=== PATIENT | male | born 1945 | race Caucasian/White ===

== ENCOUNTER 2020-08-16 14:31 | Observation (INO) | payer OTHER ==
--- OUTSIDE RECORDS SUMMARY | 2020-08-16 14:38 | XMS REPORT | Continuity of Care Document ---
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 06:00: Leonel perdue d lower Contusion 00 leg, of initial unspecifie encounter d lower leg, initial encounter 04/02/2018 04/05/2018 [facility] Encounter Problem 2017-0 2018-03-23 2018-03-23 Memoria for 09-16 12:50:43 12:50:43 l screening 03:45: Julio Cesar for Encounter 57 malignant for neoplasm screening of colon for malignant neoplasm of colon 8 03/23/2018 [place] Shortness Problem 2017-05-28 2017-05-28 Memoria of breath 02-25 21:08:44 21:08:44 l 05:27: Julio Cesar Shortness 27 of breath 02/25/2017 05/28/2017 RANDAL Palaciosann Discharge Problem 2015-10-16 2015-10-16 Memoria Diagnosis: 10-12 01:21:41 01:21:41 l Acute head 05:00: Leonel perdue injury Discharge 00 Diagnosis: Acute head injury 10/13/2015 10/16/2015 [facility] Discharge Problem 2015-10-16 2015-10-16 Memoria Diagnosis: 10-12 01:21:41 01:21:41 l Ear lobe 05:00: Julio Cesar laceration Discharge 00 Diagnosis: Ear lobe laceration 10/13/2015 10/16/2015 [facility] Discharge Problem 2015-05-18 2015-05-18 Memoria Diagnosis: 4-05 04:15:33 04:15:33 l Laceration 05:00: Leonel perdue of left Discharge 00 index Diagnosis: finger Laceration of left index finger 05/15/2015 05/18/2015 [facility] Allergies, Adverse Reactions, Alerts Allergy Allergy Status Severity Reaction(s) Onset Inactive Treating Comm ents Source Name Type Date Date Clinician mexileti mexileti Active Info Not Kamari serena ne ne Available 3-14 l 00:00: [place] 00 Lisinopr Propensi Active Other (See Leg pain Armstrong il ty to Comments) 6-13 [facility] adverse 00:00: st reaction 00 s to drug Mexileti Propensi Active Other (See Chest [place] ne ty to Comments) 6-13 pain [facility] adverse 00:00: st reaction 00 s to drug mexileti mexileti Active Memori a ne<sup>1 ne<sup>1 7-03 l </sup> </sup> 05:00: [place] 00 lisinopr lisinopr Active Memori a il il l [place] Family History Family Member Diagnosis Comments Start Date Stop Date Source Mother Family history of Univers ity of diabetes mellitus [place] [facility] Mother Family history of Univers ity of cerebrovascular [place] Ph[facility] s[facility] accident (CVA) Father Family history of lung Un iversity of cancer [place] Physicia ns Brother Family history of Univers ity of cardiac disorder [place] [facility] Brother Family history of Univers ity of hypertension [place] [facility] ians Natural brother Heart attack [place] [facility] Natural brother Heart disease [place] [facility] Natural father Heart attack [place] [facility] Natural father Heart disease [place] [facility] Social History Social Habit Start Date Stop Date Quantity Comments Source Social History 2018-11-09 2018-11-09 [facility] jackson 15:58:28 15:58:28 Tobacco use and 2018-06-07 2018-06-07 Former user [place] [facility] exposure 00:00:00 00:00:00 Alcohol intake 2018-06-07 2018-06-07 Current drinker [place] [facility] 00:00:00 00:00:00 of alcohol (finding) Tobacco Comment 2016-07-22 2016-07-22 Quit 12 years [place] [facility] 00:00:00 00:00:00 ago Sex Ass[birth year] At [birth year] [facility] ethodist 00:00:00 00:00:00 Smoking Status Start Date Stop Date Source Never smoked tobacco [facility] (finding) Physicians Former smoker 2018-06-07 00:00:00 2018-06-07 00:00:00 [place] [facility] Medications Ordered Filled Start Stop Current Ordering Indication Dosage Frequency Signature Comments Components Source Medication Medication Date Date Medication? Clinician (SIG) Name Name Tamsulosin Yes 0.4 mg = 1 M emoria hydrochlori 4-28 cap, PO, l de 0.4 MG 15:10: Daily, # Herm kai Oral 00 90 cap, 1 Capsule Refill(s), [Flomax] Pharmacy: [facility], 167.64, cm, 06/06/20 9:43:00 CDT, Height, 108.636, kg, 06/06/20 9:43:00 CDT, Weight pantoprazol Yes KIMBER 1 tab(s) Memoria e 4-22 SDRINGOLA- l 02:46: MARANGA Julio Cesar 20 furosemide Yes KIMBER 1 tab(s) Memoria 4-22 SDRINGOLA- l 02:46: MARANGA Julio Cesar 20 simvastatin Yes KIMBER 1 tab(s) Memoria 4-22 SDRINGOLA- l 02:46: MARANGA Julio Cesar 20 Ranexa Yes KIMBER 1 tab(s) Kamari serena 4-22 SDRINGOLA- l 02:46: AMANANGA [place] 20 aspirin Yes KIMBER 1 tab(s) Mem oria 4-22 SDRINGOLA- l 02:46: ALFONZO Palaciosann 20 Jackson-3 Yes KIMBER 1 cap(s) Mem oria 4-22 SDRINGOLA- l 02:46: ALFONZO Palaciosann 20 Co Q-10 Yes KIMBER 1 cap(s) Mem oria 4-22 SDRINGOLA- l 02:46: ALFONZO Palaciosann 20 ezetimibe Yes KIMBER 1 tab(s) M emoria 4-22 SDRINGOLA- l 02:46: ALFONZO Palaciosann 20 Metoprolol Yes KIMBER 1 tab(s) Memoria Tartrate 4-22 SDRINGOLA- l 02:46: ALFONZO Palaciosann 20 dutasteride Yes 1 cap, PO, Memoria -tamsulosin 4-15 Daily, # l 0.5 mg-0.4 13:53: 90 cap, 4 He rmann mg oral 00 Refill(s), capsule Pharmacy: [facility], 167.64, cm, 05/24/20 8:25:00 CDT, Height, 109.091, kg, 05/24/20 8:25:00 CDT, Weight Triamcinolo Yes 1 appl, Mem oria ne 4-15 TOP, TID, l Acetonide 13:52: X 14 day, Her coon 0.001 MG/MG 00 # 60 gm, 3 Topical Refill(s), Ointment Pharmacy: [facility], 167.64, cm, 05/24/20 8:25:00 CDT, Height, 109.091, kg, 05/24/20 8:25:00 CDT, Weight simvastatin 2019-1 Yes 0 Memori a 40 mg oral 0-15 Refill(s) l tablet 12:13: [place] 00 losartan 25 2019-1 Yes 0 Memori a mg oral 0-15 Refill(s) l tablet 12:12: [place] 00 Furosemide 2020-0 Yes See Memoria 40 MG Oral 6-10 Instructio l Tablet 15:55: ns, 1.5 Julio Cesar 00 tab PO in the AM and 1 tab in the PM, # 60 tab, 0 Refill(s), Pharmacy: [facility], 167.64, cm, 07/19/19 4:24:00 CDT, Height, 105.909, kg, 07/19/19 4:24:00 CDT, Weight metoprolol 2019-0 Yes 12.5 mg, Mem oria succinate 6-10 PO, Daily, l 25 mg oral 15:55: # 30 tab, He rmann capsule, 00 0 extended Refill(s), release Pharmacy: [facility], 167.64, cm, 07/19/19 4:24:00 CDT, Height, 105.909, kg, 07/19/19 4:24:00 CDT, Weight spironolact 2019-0 Yes 25 mg = 1 M emoria one 25 mg 6-10 tab, PO, l oral tablet 15:55: Daily, # He rmann 00 30 tab, 0 Refill(s), Pharmacy: [facility], 167.64, cm, 07/19/19 4:24:00 CDT, Height, 105.909, kg, 07/19/19 4:24:00 CDT, Weight Aspirin 81 2020-0 No 81 mg, 1 Mem oria MG Enteric 6-10 tab, l Coated 14:00: Route: PO, Erin nn Tablet 00 Drug form: ECTAB, Daily, Dosing Weight 105.909, kg, Start date: 07/20/19 9:00:00 CDT, Duration: 30 day, Stop date: 08/18/19 9:00:00 CDT Vitamin D3 No Notes: Memor ia 2000 intl 6-10 Same as : l units oral 14:00: Vitamin D3 H ermann tablet 00 Zetia No Notes: Memoria 6-10 (Same as: l 14:00: Zetia) Julio Cesar 00 pantoprazol No Notes: Kamari serena e 6-10 Tablet l 14:00: should not Julio Cesar 00 be chewed or crushed. (Same as: Protonix) Potassium No Notes: Memori a Chloride 6-10 (Same as: l 14:00: K-Dur 20) Julio Cesar 00 "Do Not Crush" Give with food and full glass of water For patients unable to swallow tablet, dissolve in one half glass of water. Allow about 2 minutes for the tablets to disintegra te. Stir before giving to prepare slurry and administer . Please exclude Patient s with feeding tube less than 14 [place] (Dobhoff, J-tube etc) and pediatric and patients. metoprolol No Notes: Memor ia extended 6-10 (Same as: l release 14:00: Toprol XL) Herm kai 00 Do Not Crush 12.5 mg = 1/2 x 25 mg TAB Potassium No Notes: Memori a Chloride 6-10 (Same as: l 13:49: Potassium Julio Cesar 00 Chloride) Trazodone No Notes: Memori a 6-10 (Same As: l 02:02: Desyrel) Julio Cesar 00 12 HR No Notes: Memoria ranolazine - Same as l 500 MG 22:00: Ranexa "Do Erin nn Extended 00 Not Crush" Release Tablet [Ranexa] potassium No Notes: Memori a chloride 20 6-09 (Same as: l mEq oral 15:48: K-Dur 20) Herm kai tablet, 00 "Do Not extended Crush" release Give with (KCL) food and full glass of water For patients unable to swallow tablet, dissolve in one half glass of water. Allow about 2 minutes for the tablets to disintegra te. Stir before giving to prepare slurry and administer . Please exclude Patient s with feeding tube less than 14 [place] (Dobhoff, J-tube etc) and pediatric and patients. Spironolact 2019-0 No Notes: Kamari serena one 6-09 (Same As: l 14:00: Aldactone) Hazardous Drug Group 2:Non-anti neoplastic Hazardous Drug -- Refer to safe handling procedure PPE [id number] atorvastati 0 No Notes: Kamari serena n 6-09 (Same As: l 02:00: Lipitor) furosemide No Notes: Memor ia 6-08 (Same as: l 21:00: Lasix) MEDICATION WASTE Product Size: 40 mg Product Wasted: ___ mg Aspirin 81 No Notes: Memor ia MG Chewable 6-08 Take with l Tablet 14:00: food. clopidogrel No Notes: Kamari serena 6-08 (Same As: l 14:00: Plavix) Spironolact No Notes: Kamari serena one 6-08 (Same As: l 14:00: Aldactone) Hazardous Drug Group 2:Non-anti neoplastic Hazardous Drug -- Refer to safe handling procedure PPE [id number] isosorbide 0 No Notes: Memor ia mononitrate 6-08 (Same l extended 14:00: as:Imdur) "Do Not Crush" Take on empty stomach/ full glass of water. Do not crush Acetaminoph 2019-0 No Notes: Kamari serena en 325 MG / 6-08 Same as l Hydrocodone 02:07: [place]ing[place] Erin nn Bitartrate 00 325-7.5mg 7.5 MG Oral Do not Tablet exceed 4gm/day of acetaminop hen. Saline 0 No Notes: Memoria Flush 0.9% 6-08 Same as: l 02:00: BD Posiflush Sterile Acetaminoph 2019-0 Yes 1 tab, PO, Memoria en 325 MG / 6-08 Q4H, PRN l Hydrocodone 01:10: for pain, H ermann Bitartrate 00 # 42 tab, 7.5 MG Oral 0 Tablet Refill(s) Enoxaparin 0 No Notes: Memor ia 6-08 (Same as: l 00:00: Lovenox) Julio Cesar 00 Ondansetron 2020-0 No Notes: Kamari serena 6-07 (Same as: l 23:08: Zofran) [place] 00 MEDICATION WASTE Product Size: 4 mg Product Wasted: ___ mg Saline 2020-0 No Notes: Memoria Flush 0.9% 6- Same as: l 23:08: BD [place] 00 Posiflush Sterile Furosemide 2019-0 No Notes: Memor ia 6- (Same as: l 23:05: Lasix) MEDICATION WASTE Product Size: 40 mg Product Wasted: ___ mg Lasix 2020-0 No 40 mg, Memoria 07-16 Route: IV, l 22:08: ONCE, Dosing Weight 105.455, kg, Start date: 07/17/19 17:08:00 CDT, Stop date: 07/17/19 17:08:00 CDT furosemide 2019-0 No Notes: Memor ia 6- (Same as: l 05:00: Lasix) MEDICATION WASTE Product Size: 40 mg Product Wasted: ___ mg Hydralazine 2019-0 No Notes: Kamari serena 6-01 (Same as: l 17:27: Apresoline [place] ) Push over 5 minutes Labetalol 2019-0 No Notes: Memori a 6-01 (Same as: l 17:27: Normodyne, Julio Cesar Trandate) Push over 2 minutes Give bolus over 2-3 minutes. Oxycodone 2019-0 No Notes: Memori a Hydrochlori 6-01 (Same as: l de 5 MG 17:27: Roxicodone Herm kai Oral Tablet ) Fentanyl 2019-0 No Notes: Memoria 6- (Same as: l 17:27: Sublimaze) Preservat denise free. Hydromorpho 2019-0 No Notes: Kamari serena ne 6- Same as: l 17:27: Dilaudid Julio Cesar 00 Flumazenil 2019-0 No Notes: Memor ia 6- (Same as: l 17:27: Romazicon) Naloxone 2020-0 No Notes: Memoria 6-01 Same as l 17:27: Narcan Albuterol 2019-0 No Notes: SEE Me moria 0.83 MG/ML 07-10 RT l Inhalant 17:27: DOCUMENTAT Her coon Solution 00 ION (Same as: Proventil) Diphenhydra 2019-0 No Notes: Kamari serena mine 07-10 (Same as: l 17:27: Benadryl) Ondansetron No Notes: Kamari serena 07-10 (Same as: l 17:27: Zofran) MEDICATION WASTE Product Size: 4 mg Product Wasted: ___ mg Dexamethaso 2019-0 No Notes: Kamari serena ne 07-10 Concentrat l 17:27: ion: 4mg/ml ondansetron No Route: IV, Memoria (ANES) 07-10 Drug form: l 16:40: INJ, ONCE, Stop date: 07/11/19 11:40:00 CDT ketOROLAC 2019-0 No IV, ONCE Kamari serena (ANES) 07-10 l 16:40: glycopyrrol 2019-0 No Route: IV, Memoria ate (ANES) 07-10 Drug form: l 16:40: INJ, ONCE, Stop date: 07/11/19 11:40:00 CDT neostigmine No Route: IV, Memoria (ANES) 07-10 Drug form: l 16:40: INJ, ONCE, Stop date: 07/11/19 11:40:00 CDT rocuronium 2019- No Route: IV, M emoria (ANES) 07-10 Drug form: l 16:07: INJ, ONCE, Stop date: 07/11/19 11:07:00 CDT ceFAZolin 2019-0 No Route: IV, Me moria (ANES) 07-10 Drug form: l 16:07: INJ, ONCE, Stop date: 07/11/19 11:07:00 CDT fentaNYL 2019-0 No Route: IV, Mem oria (ANES) 07-10 Drug form: l 16:06: INJ, ONCE, Stop date: 07/11/19 11:06:00 CDT propofol 2020-0 No Route: IV, Mem oria (ANES) 07-10 Drug form: l 16:06: INJ, ONCE, [place] Stop date: 07/11/19 11:06:00 CDT dexamethaso 2019-0 No Route: IV, Memoria ne (ANES) 07-10 Drug form: l 16:06: INJ, ONCE, Julio Cesar Stop date: 07/11/19 11:06:00 CDT midazolam 2019-0 No Route: IV, Me moria (ANES) 07-10 Drug form: l 16:01: SOLN, [place] 00 ONCE, Stop date: 07/11/19 11:01:00 CDT Lactated 2019-0 No Route: IV, Mem oria Ringers 07-10 Total l Injection 14:45: Volume: Erin nn IV (ANES) 00 1,000, 1000 mL Start date: 07/11/19 9:45:00 CDT, Stop date: 07/11/19 10:45:00 CDT Calcium 2019- No 1,000 mL, Memor ia Chloride 07-10 Rate: 75 l 0.0014 12:47: ml/hr, MEQ/ML / 00 Infuse Potassium over: 13.3 Chloride hr, Route: 0.004 IV, Dosing MEQ/ML / Weight Sodium 105.909 Chloride kg, Total 0.103 Volume: MEQ/ML / 1,000, Sodium Start Lactate date: 0.028 07/11/19 MEQ/ML 7:47:00 Injectable CDT, Solution Duration: 30 day, Stop date: 08/10/19 7:46:00 CDT, 2.25, m2, 0 HYDROcodone HYDROcodone Yes SHARRI 1 Q4H TAKE 1 Univers -Acetaminop -Acetaminop 07-10 QUESADA-BAR TABLET ity of hen 7.5-325 hen 7.5-325 00:00: RE M.D. EVERY 4 [place] MG Oral MG Oral 00 HOURS PRN Phys ici Tablet Tablet ans Vitamin D3 Yes 2,000 Memori a 2000 intl 5-14 IntlUnit = l units oral 19:42: 1 cap, PO, H ermann capsule 00 Daily, # 100 cap, 3 Refill(s), Pharmacy: [facility] losartan 25 Yes 25 mg = 1 M emoria mg oral 1-30 tab, PO, l tablet 17:25: Daily, 0 Julio Cesar 00 Refill(s) Sodium 2018-02 No 1,000 mL, Memori a Chloride 0-10 Rate: 75 l 0.9% IV 12:33: ml/hr, Julio Cesar 1000 mL 00 Infuse over: 13.3 hr, Route: IV, Dosing Weight 105.455 kg, Total Volume: 1,000, Start date: 11/18/18 7:33:00 CDT, Duration: 30 day, Stop date: 12/18/18 7:32:00 [employer]LECT[employer]ER, 2.25, m2 12 HR 2018-02 Yes 500 mg = 1 Memori a ranolazine 0-09 tab, PO, l 500 MG 15:57: BID, # 60 Leonel n Extended 00 tab, 0 Release Refill(s) Tablet [Ranexa] Jackson-3 2018-02 Yes 0 Memoria oral 0-01 Refill(s) l capsule 15:54: Julio Cesar 00 potassium 2018-0 Yes 20meq QD Take 20 [place] chloride 4-12 mEq by Methodi (KLOR-CON) 15:15: mouth st 20 mEq 37 daily. packet coenzyme 2019-0 Yes 200mg QD Take 200 [place] Q10 200 mg 4-12 mg by [facility] capsule 15:15: mouth st 37 daily. ranolazine 2019-0 Yes 500mg Q.5D Take 500 [place] (RANEXA) 4-12 mg by [facility] 500 MG 12 15:15: mouth 2 st hr ER 37 (two) tablet times a day. clopidogrel 2019-0 Yes 75mg QD Take 75 mg [place] (PLAVIX) 75 4-12 by mouth Meth jasvir mg tablet 15:15: daily. st 37 aspirin 2019-0 Yes 81mg Q.5D Take 81 mg [place] (ECOTRIN) 4-12 by mouth 2 Meth jasvir 81 MG 15:15: (two) st enteric 37 times a coated day. tablet simvastatin 2019-0 Yes 40mg QD Take 40 mg [place] (ZOCOR) 40 4-12 by mouth Metho di MG tablet 15:15: nightly. st 37 isosorbide 2019-0 Yes 30mg Q.5D Take 30 mg [place] mononitrate 4-12 by mouth 2 Me thodi (IMDUR) 30 15:15: (two) st MG 24 hr 37 times a tablet day. metoprolol Yes 25mg QD Take 25 mg [place] tartrate 4-12 by mouth Methodi (LOPRESSOR) 15:15: daily. st 25 mg 37 tablet pantoprazol 2018-0 Yes 40mg QD Take 40 mg [place] e 4-12 by mouth Methodi (PROTONIX) 15:15: daily. st 40 MG EC 37 tablet OM Yes 1{capsu Q.5D Take 1 [place] 3/E/LINOL/A 4-12 le} capsule by Ms thjasvir LA/OLEIC/GL 15:15: mouth 2 st A/LIP 37 (two) (OMEGA times a 3-6-9 ORAL) day. furosemide Yes 60mg QD Take 60 mg [place] (LASIX) 40 4-12 by mouth Metho di mg tablet 15:15: daily. st 37 ezetimibe Yes 10mg QD Take 10 mg [place] (ZETIA) 10 4-12 by mouth Metho di mg tablet 15:15: daily. st 37 clopidogrel 2018-0 Yes KIMBER 1 tab(s) Memoria 3-12 SDRINGOLA- l 00:00: MARANGA [place] 00 isosorbide 2018-0 Yes KIMBER 1 tab(s) Memoria mononitrate 3-12 SDRINGOLA- l 00:00: MARANGA Julio Cesar 00 potassium 2019-0 Yes KIMBER 1 tab(s) M emoria chloride 3-12 SDRINGOLA- l 00:00: MARANGA Julio Cesar 00 Sulfamethox 2019-0 Yes 1 tab, PO, Memoria azole 800 3-07 BID, X 10 l MG / 15:29: day, # 20 [place] Trimethopri 00 tab, 0 m 160 MG Refill(s), Oral Tablet Pharmacy: [Bactri] [place] [id number] ezetimibe 2018-0 Yes 10 mg = 1 Mem oria 10 MG Oral 3-07 tab, PO, l Tablet 15:08: Daily, 0 Julio Cesar [Zetia] 00 Refill(s) clopidogrel 2017-0 Yes 75 mg = 1 M emoria 75 mg oral 8-15 tab, PO, l tablet 21:59: Daily, # Julio Cesar 00 30 tab, 1 Refill(s), Pharmacy: [place] [id number] Aspirin 81 Yes 81 mg = 1 Me moria MG Enteric 8-15 tab, PO, l Coated 21:59: Daily, # [place] Tablet 00 30 tab, 1 Refill(s), Pharmacy: [place] [id number] Aspirin 81 No Notes: Do Me moria MG Enteric 8-15 not crush l Coated 14:00: or chew. [place] Tablet 00 (Same As: Ecotrin) isosorbide No Notes: Memor ia mononitrate 8-15 (Same l extended 14:00: as:Imdur) Herm kai release 00 "Do Not Crush" Take on empty stomach/ full glass of water. Do not crush 12 HR No Notes: Memoria ranolazine 8-15 Same as l 500 MG 14:00: Ranexa "Do Erin nn Extended 00 Not Crush" Release Tablet [Ranexa] pantoprazol No Notes: Kamari serena e 8-15 Tablet l 12:30: should not Julio Cesar 00 be chewed or crushed. (Same as: Protonix) Lovenox No Notes: Memoria 8-15 (Same as: l 02:00: Lovenox) Julio Cesar 00 Simvastatin No Notes: Kamari serena 8-15 (Same as: l 02:00: Zocor) Julio Cesar 00 Acetaminoph No Notes: Do M emoria en 325 MG / 8-14 not exceed l Hydrocodone 22:20: 4gm/day of Julio Cesar Bitartrate 00 acetaminop 10 MG Oral hen. Tablet (Same as: [Abingdon Abingdon 10/325] 325/10) Lasix No Notes: Memoria 8-14 (Same as: l 21:00: Lasix) [place] 00 MEDICATION WASTE Product Size: 40 mg Product Wasted: ___ mg Aspirin 325 No Notes: (Do Memoria MG Enteric 8-14 Not Crush) l Coated 20:36: Do not [place] Tablet 00 crush or chew. clopidogrel No Notes: Kamari serena 8-14 (Same As: l 20:36: Plavix) [place] 00 Acetaminoph No Notes: Do M emoria en -14 not exceed l 19:53: 4 gm/day. (Same as: Tylenol) Acetaminoph No Notes: Kamari serena en 325 MG / 09-22 (Same as: l Hydrocodone 19:53: [place] Erin nn Bitartrate 00 325/5) Do 5 MG Oral not exceed Tablet 4gm/day of acetaminop hen. Morphine No 2 mg, 1 Memori a 8-14 mL, Route: l 19:53: IVP, Drug form: SOLN, Q4H, Dosing Weight 101.818, kg, PRN Pain Score 7-10, Start date: 09/22/17 14:53:00 CDT, Duration: 30 day, Stop date: 10/22/17 14:52:00 CDT Ondansetron No Notes: Kamari serena 09-22 (Same as: l 19:53: Zofran) MEDICATION WASTE Product Size: 4 mg Product Wasted: ___ mg NS (Bolus) No 500 mL, Kamari serena IV 09-22 500 ml/hr, l 18:43: Infuse Over: 1 hr, Route: IV, 500, Drug form: INJ, ONCE, Priority: STAT, Dosing Weight 101.818 kg, Start date: 09/22/17 13:43:00 CDT, Stop date: 09/22/17 13:43:00 CDT Saline No Notes: Memoria Flush 0.9% 09-22 (Same as: l 15:30: BD Posiflush) ondansetron Yes 4 mg = 2 Me moria 2 mg/mL 8-08 mL, IV, l injectable 21:17: Q4H, PRN Her coon solution 00 Nausea, 0 Refill(s) Enoxaparin Yes 40 mg = Kamari serena 08 0.4 mL, l 21:17: SUB-Q, [id number], 0 Refill(s) Acetaminoph Yes 2 tab, PO, Memoria en 325 MG / 09-16 Q6H, PRN l Hydrocodone 21:17: Pain Score [place] Bitartrate 00 6-10, 0 10 MG Oral Refill(s) Tablet [[place]ing[place] 10/325] pantoprazol No Notes: Kamari serena e 8-08 Tablet l 14:00: should not be chewed or crushed. (Same as: Protonix) Lopressor No Notes: Memori a 8-08 (Same as: l 14:00: Lopressor) Isosorbide No Notes: Memor ia 09-16 (Same l 14:00: as:Imdur) "Do Not Crush" Take on empty stomach/ full glass of water. Do not crush Furosemide No Notes: Memor ia 09-16 (Same as: l 14:00: Lasix) May cause GI upset. Give with food or milk. ubiquinone No 200 mg, Kamari serena 09-16 Route: PO, l 14:00: Daily, Dosing Weight 102.273, kg, Start date: 09/16/17 9:00:00 CDT, Duration: 30 day, Stop date: 10/15/17 9:00:00 CDT *ATTN RN No *ATTTroy RN Jefferyor barber please 09-16 please l bring pt 05:00: bring pt Erin home med to 00 home med pharmacy to to be labeled* pharmacy to be labeled*, ATTTroy RN, Drug form: MISC, Route: MISC, QSHIFT, 09/16/17 0:00:00 CDT, Duration: 30 day, Stop date: 10/15/17 16:00:00 CDT Simvastatin No Notes: Kamari serena -08 (Same as: l 02:00: Zocor) [place] No Notes: Do Memoria 10/325 oral 09-16 not exceed l tablet 02:00: 4gm/day of Erin nn acetaminop hen. (Same as: [place] 325/10) Enoxaparin No Notes: Memor ia 8-08 (Same as: l 01:30: Lovenox) [place] Acetaminoph No Notes: Do M emoria en 325 MG / 09-15 not exceed l Hydrocodone 17:00: 4gm/day of [place] Bitartrate 00 acetaminop 10 MG Oral hen. Tablet (Same as: [[place] Abing[place] 10/325] 325/10) Cefazolin No Notes: Memori a 09-15 (Same As: l 17:00: Ancef) Inject direct IV slowly over 5 minutes. Cefazolin 1gm in sterile water 10mL Dilaudid No Notes: Memoria 09-15 Same as: l 15:06: Dilaudid Celebrex No Notes: Memoria 09-15 NSAID. l 14:00: Please check indication . Not for seizure. (Same As: CeleBREX) Saline No Notes: Memoria Flush 0.9% 09-15 (Same as: l 14:00: BD Posiflush) Vancomycin No 2001 mg: Me moria 09-15 infuse l 14:00: over 2.5 hours For adult patients only: Round to nearest 250 mg per Medical Staff approval MEDICATION WASTE Product Size: 1000 mg Product Wasted: ___ mg Naloxone No 0.4 mg, Memori a 09-15 Route: l 13:45: IVP, 00 Q2MIN, Dosing Weight 102.273, kg, PRN Narcotic Reversal, Start date: 09/15/17 8:45:00 CDT, Duration: 8 doses or times, Stop date: Limited # of times Flumazenil No 0.2 mg, Kamari serena 09-15 Route: l 13:45: IVP, PRN, Dosing Weight 102.273, kg, PRN Benzodiaze pine Reversal, Initial dose, Start date: 09/15/17 8:45:00 CDT, Duration: 30 day, Stop date: 10/15/17 8:44:00 CDT Fentanyl No 50 Memoria 09-15 microgram, l 13:45: Route: IVP, Q5Min, Dosing Weight 102.273, kg, PRN Pain Score 7-10, Priority: Routine, Start date: 09/15/17 8:45:00 CDT, Duration: 2 doses or times, Stop date: Limited # of times Ondansetron 2018-0 No 4 mg, Memor ia 09-15 Route: l 13:45: IVP, ONCE, Dosing Weight 102.273, kg, PRN Nausea & Vomiting, Start date: 09/15/17 8:45:00 CDT Promethazin 2018-0 No 6.25 mg, Me moria e 09-15 Route: l 13:45: IVPB, [place] 00 ONCE, Dosing Weight 102.273, kg, PRN Nausea & Vomiting, Start date: 09/15/17 8:45:00 CDT Meperidine 2018-0 No 12.5 mg, Mem oria 09-15 Route: l 13:45: IVP, Julio Cesar 00 Q30Min, Dosing Weight 102.273, kg, PRN Other -See Comment, For shivering, Start date: 09/15/17 8:45:00 CDT, Duration: 2 doses or times, Stop date: Limited # of times Acetaminoph 2018-0 No 1,000 mg, M emoria en 09-15 Route: IV, l 13:45: ONCE, Dosing Weight 102.273, kg, PRN Pain Score 1-3, Start date: 09/15/17 8:45:00 CDT Calcium 2018-0 No 1,000 mL, Memor ia Chloride 09-15 Rate: 125 l 0.0014 13:45: ml/hr, MEQ/ML / 00 Infuse Potassium over: 8 Chloride hr, Route: 0.004 IV, Dosing MEQ/ML / Weight Sodium 102.273 Chloride kg, Total 0.103 Volume: MEQ/ML / 1,000, Sodium Start Lactate date: 0.028 09/15/17 MEQ/ML 8:45:00 Injectable CDT, Solution Duration: 30 day, Stop date: 10/15/17 8:44:00 CDT, 2.21, m2 esmolol 2018-0 No 10 mg, Memoria 09-15 Route: l 13:45: IVP, [place] 00 Q5Min, Dosing Weight 102.273, kg, PRN Other -See Comment, Start date: 09/15/17 8:45:00 CDT, Duration: 5 doses or times, Stop date: Limited # of times Labetalol No 10 mg, Memori a 09-15 Route: l 13:45: IVP, [place] 00 Q5Min, Dosing Weight 102.273, kg, PRN Elevated BP, Start date: 09/15/17 8:45:00 CDT, Duration: 5 doses or times, Stop date: Limited # of times Hydralazine No 10 mg, Kamari serena 09-15 Route: l 13:45: IVP, [place] 00 Q20Min, Dosing Weight 102.273, kg, PRN Elevated BP, Start date: 09/15/17 8:45:00 CDT, Duration: 2 doses or times, Stop date: Limited # of times Acetaminoph No Notes: Do M emoria en 325 MG / 09-15 not exceed l Hydrocodone 13:33: 4gm/day of Julio Cesar Bitartrate 00 acetaminop 10 MG Oral hen. Tablet (Same as: [[place] 10/325] 325/10) Zofran No Notes: Memoria 09-15 (Same as: l 13:33: Zofran) MEDICATION WASTE Product Size: 4 mg Product Wasted: ___ mg Benadryl No 25 mg, 1 Memor ia 09-15 tab, l 13:33: Route: PO, Drug form: TAB, Bedtime, Dosing Weight 102.273, kg, PRN Insomnia, Start date: 09/15/17 8:33:00 CDT, Duration: 30 day, Stop date: 10/15/17 8:32:00 CDT Saline No Notes: Memoria Flush 0.9% 09-15 (Same as: l 13:33: BD Posiflush) 1/2 NS No 1,000 mL, Memori a 1,000 mL 09-15 Rate: 75 l 13:33: ml/hr, Infuse over: 13.3 hr, Route: IV, Dosing Weight 102.273 kg, Total Volume: 1,000, Start date: 09/15/17 8:33:00 CDT, Duration: 30 day, Stop date: 10/15/17 8:32:00 CDT, 2.21, m2 glycopyrrol 2017-0 No Route: IV, Memoria ate (ANES) 09-15 Drug form: l 13:31: INJ, ONCE, Stop date: 09/15/17 8:31:00 CDT neostigmine 2017-0 No Route: IV, Memoria (ANES) 09-15 Drug form: l 13:31: INJ, ONCE, Stop date: 09/15/17 8:31:00 CDT phenylephri 2017- No Route: IV, Memoria ne (ANES) 09-15 Drug form: l 12:39: INJ, ONCE, Stop date: 09/15/17 7:39:00 CDT ePHEDrine No Route: IV, Me moria (ANES) 09-15 Drug form: l 12:39: INJ, ONCE, Stop date: 09/15/17 7:39:00 CDT metoclopram No Route: IV, Memoria wyatt (ANES) 09-15 Drug form: l 12:34: INJ, ONCE, Stop date: 09/15/17 7:34:00 CDT famotidine No Route: IV, M emoria (ANES) 09-15 Drug form: l 12:34: INJ, ONCE, Stop date: 09/15/17 7:34:00 CDT dexamethaso 2017- No Route: IV, Memoria ne (ANES) 09-15 Drug form: l 12:34: INJ, ONCE, Stop date: 09/15/17 7:34:00 CDT acetaminoph No Route: IV, Memoria en (ANES) 09-15 Drug form: l 12:34: INJ, ONCE, Stop date: 09/15/17 7:34:00 CDT ceFAZolin No Route: IV, Me moria (ANES) 09-15 Drug form: l 12:34: INJ, ONCE, Stop date: 09/15/17 7:34:00 CDT tranexamic No Route: IV, M emoria acid (ANES) 09-15 Drug form: l 12:29: INJ, ONCE, Stop date: 09/15/17 7:29:00 CDT rocuronium No Route: IV, Efren emoria (ANES) 09-15 Drug form: l 12:29: INJ, ONCE, Julio Cesar 00 Stop date: 09/15/17 7:29:00 CDT fentaNYL No Route: IV, Mem oria (ANES) 09-15 Drug form: l 12:29: INJ, ONCE, [place] 00 Stop date: 09/15/17 7:29:00 CDT propofol No Route: IV, Mem oria (ANES) 09-15 Drug form: l 12:29: INJ, ONCE, Stop date: 09/15/17 7:29:00 CDT lidocaine No Route: IV, Me moria (ANES) 09-15 Drug form: l 12:29: INJ, ONCE, Stop date: 09/15/17 7:29:00 CDT Albuterol No 3 mL, Memoria 0.833 MG/ML 09-15 Route: l / 11:54: NEB, Julio Cesar Ipratropium 00 Dosing [place] Weight 0.167 MG/ML 102.273, Inhalant kg, ONCE, Solution STAT, Start date: 09/15/17 6:54:00 CDT, Stop date: 09/15/17 6:54:00 CDT Calcium No 1,000 mL, Memor ia Chloride 09-15 Rate: 25 l 0.0014 11:54: ml/hr, MEQ/ML / 00 Infuse Potassium over: 40 Chloride hr, Route: 0.004 IV, Dosing MEQ/ML / Weight Sodium 102.273 Chloride kg, Total 0.103 Volume: MEQ/ML / 1,000, Sodium Start Lactate date: 0.028 09/15/17 MEQ/ML 6:54:00 Injectable CDT, Solution Duration: 30 day, Stop date: 10/15/17 6:53:00 CDT, 2.21, m2 Lactated No Route: IV, Mem oria Ringers 09-15 Total l Injection 11:29: Volume: Erin nn IV (ANES) 00 1,000, 1000 mL Start date: 09/15/17 6:29:00 CDT, Stop date: 09/15/17 7:29:00 CDT gabapentin 2017- No 600 mg, 1 Me moria 600 MG Oral 8-07 tab, l Tablet 11:15: Route: PO, Erin nn 00 ONCE, Dosing Weight 102.273, kg, Start date: 09/15/17 6:15:00 CDT, Stop date: 09/15/17 6:15:00 CDT ropivacaine 2017- No Notes: Memoria 09-15 NOT FOR IV l 11:00: use Julio Cesar 00 Ropivacain e 5 mg/mL (49.25 mL) Epinephrin e 1 mg/mL (0.5 mL) Clonidine 0.1 mg/mL (0.8 mL) Ketorolac 30 mg/mL (1 mL) Normal Saline 48.45 mL Sodium 2017- No 1,000 mL, Memori a Chloride 7-26 Rate: 25 l 0.9% IV 11:54: ml/hr, Julio Cesar 1,000 mL 00 Infuse over: 40 hr, Route: IV, Dosing Weight 103.045 kg, Total Volume: 1,000, Start date: 09/03/17 6:54:00 CDT, Duration: 1 day, Stop date: 09/04/17 6:53:00 CDT, 2.22, m2 clopidogrel No 75 mg = 1 M emoria 75 MG Oral 7-23 tab, PO, l Tablet 17:31: Daily, # [place] [Plavix] 00 30 tab, 0 Refill(s) isosorbide Yes 30 mg = 1 Ms moria mononitrate 2-13 tab, PO, l 30 mg oral 13:59: BID, 0 Erin nn tablet, 00 Refill(s) extended release simvastatin Yes 20 mg = 1 M emoria 20 mg oral 2-13 tab, PO, l tablet 13:59: Bedtime, 0 Erin nn 00 Refill(s) benzonatate No 200 mg = 1 Memoria 200 mg oral 1-05 cap, PO, l capsule 14:00: TID, X 10 Erin nn 00 day, # 30 cap, 1 Refill(s), Pharmacy: [place] [id number] Varicella Yes 0.65 mL, Me moria guilherme Virus 1-05 SUB-Q, l Vaccine 13:53: ONCE, # 1 Erin nn Live 00 mL, 0 ([employer]) Refill(s) strain [id number] UNT/ML Injectable Suspension [Zostavax] Jackson-3 Yes 0 Memoria oral 1-05 Refill(s) l capsule 13:16: Julio Cesar Furosemide Yes 60 mg, PO, M emoria 1-05 Daily, 0 l 13:16: Refill(s) [place] simvastatin No 40 mg = 1 M emoria 40 mg oral -05 tab, PO, l tablet 13:16: Bedtime, 0 Erin nn 00 Refill(s) clindamycin Yes 300 mg = 2 Memoria 150 mg oral 10-12 cap, PO, l capsule 21:50: Q6H, X 7 Leonel n 00 day, # 56 cap, 0 Refill(s) tramadol Yes 50 mg = 1 Kamari serena hydrochlori 10-12 tab, PO, l de 50 MG 21:49: Q4H, PRN Erin nn Oral Tablet 00 pain, X 3 [Ultram] day, # 20 tab, 0 Refill(s) tramadol No Notes: Not Mem oria hydrochlori 10-12 to exceed l de 50 MG 20:27: 400mg/day. Her coon Oral Tablet 00 (Same As: [Ultram] Ultram) Clindamycin No 300 mg, Mem oria 10-12 Route: PO, l 20:11: ONCE, [place] Dosing Weight 102.273, kg, Priority: STAT, Start date: 10/13/15 15:11:00 CDT, Stop date: 10/13/15 15:11:00 CDT tramadol Yes 1 - 2 Memoria hydrochlori 4-06 tabs, PO, l de 50 MG 00:29: Q4-6H, PRN Her coon Oral Tablet 00 as needed [Ultram] for pain, X 3 day, # 20 tab, 0 Refill(s) Cephalexin Yes 500 mg = 1 M emoria 500 MG Oral -06 cap, PO, l Capsule 00:28: Q8H, X 10 Erin nn [Keflex] 00 day, # 30 cap, 0 Refill(s), Pharmacy: [address] No 4 mg, Memoria 4-05 Route: PO, l 23:32: ONCE, [place] Dosing Weight 102.273, kg, Start date: 05/15/15 18:32:00, Stop date: 05/15/15 18:32:00 Acetaminoph No Notes: Kamari serena en 325 MG / 4-05 (Same as: l Hydrocodone 22:10: [place] Erin nn Bitartrate 00 325/5) Do 5 MG Oral not exceed Tablet 4gm/day of [[place] acetaminop 5/325] hen. Lidocaine No Notes: Memori a Hydrochlori -05 (Same as: l de 10 MG/ML 22:10: Xylocaine) Julio Cesar Injectable 00 Solution Marcaine No Notes: Memoria HCl 4-05 Preservati l 22:10: ve free. Vul[place] (Same As: Marcaine-M PF, Sensorcain e-MPF) Codeine Yes 5 mL, PO, Memor ia Phosphate 2 3-02 Q6H, PRN l MG/ML / 16:56: cough, X 6 Herm kai Guaifenesin 00 day, # 120 20 MG/ML mL, 0 Oral Refill(s) Solution [Cheratussi n] Oseltamivir Yes 75 mg, PO, Memoria 75 MG Oral 3-02 Q12H, X 5 l Capsule 16:41: day, # 10 Erin nn [Tamiflu] 00 cap, 0 Refill(s) Vitamin B12 No Notes: Kamari serena -02 (Same As: l 15:00: Vitamin [place] B12) clopidogrel No Notes: Kamari serena 3- (Same As: l 15:00: Plavix) [place] 00 PLease No PLease Memoria bring pt's - bring pt's l own 15:00: own [place] Ubiquinone Ubiquinone to pharmacy to for label pharmacy for label, Reminder, Drug form: MISC, Route: MISC, Daily, 04/11/15 9:00:00, Duration: 30 day, Stop date: 05/10/15 9:00:00 ubiquinone No 300 mg, Kamari serena 3-02 Route: PO, l 15:00: Daily, Julio Cesar 00 Dosing Weight 104.545, kg, Start date: 04/11/15 9:00:00, Duration: 30 day, Stop date: 05/10/15 9:00:00 potassium No Notes: Memori a chloride 3-02 (Same as: l 15:00: K-Dur 20) Julio Cesar 00 "Do Not Crush" With food and full glass of water pantoprazol No Notes: Kamari serena e 3-02 Tablet l 15:00: should not Vul[place] 00 be chewed or crushed. (Same as: Protonix) Isosorbide No Notes: Memor ia 3-02 (Same l 15:00: as:Imdur) "Do Not Crush" Take on empty stomach/ full glass of water. Do not crush Furosemide No Notes: Memor ia 40 MG Oral 02 (Same as: l Tablet 15:00: Lasix) May cause GI upset. Give with food or milk. Simvastatin No Notes: Kamari serena 3-02 (Same as: l 03:00: Zocor) metoprolol No Notes: Memor ia tartrate -02 (Same as: l 03:00: Lopressor) Julio Cesar 00 Solu-Medrol No Notes: Kamari serena 3-02 (Same l 03:00: as:Solu-ME Vul[place] 00 DROL, A-Methapre d) 12 HR No Notes: Memoria ranolazine - Same as l 500 MG 23:00: Ranexa "Do Erin nn Extended 00 Not Crush" Release Tablet [Ranexa] NS 1,000 mL No 1,000 mL, Efren emoria 04-09 Rate: 75 l 22:53: ml/hr, Infuse over: 13.3 hr, Route: IV, Dosing Weight 104.545 kg, Total Volume: 1,000, Start date: 04/10/15 16:53:00, Duration: 2 doses or times, Stop date: 04/11/15 19:28:00 Tramadol No Notes: Not Mem oria 3- to exceed l 22:53: 400mg/day. Vul[place] 00 (Same As: Ultram) Tylenol No Notes: Do Memor ia 3- not exceed l 22:53: 4 gm/day. Julio Cesar 00 (Same as: Tylenol) Zofran No Notes: Memoria 3- (Same as: l 22:53: Zofran) Julio Cesar 00 MEDICATION WASTE Product Size: 4 mg Product Wasted: ___ mg Robitussin- No Notes: Kamari serena AC oral 3- (Same As: l syrup 22:53: Robitussin Leonel n 00 AC) Albuterol No Notes: Memori a 0.833 MG/ML 04-09 (Same as: l / 22:53: Duoneb) Julio Cesar Ipratropium 00 [place] 0.167 MG/ML Inhalant Solution [DuoNeb] Azithromyci No Notes: Kamari serena n 3- (Same As: l 20:00: Zithromax [place] 00 IV) Oseltamivir No Notes: Kamari serena 3- Take with l 20:00: food. Same Julio Cesar 00 as: Tamiflu) Aspirin 81 No Notes: Do Me moria MG Enteric 04-09 not crush l Coated 18:08: or chew. Julio Cesar Tablet 00 (Same As: Ecotrin) Ceftriaxone No Notes: Kamari serena 3- (Same As: l 18:00: Rocephin). Julio Cesar 00 Use with 100 mL NS and infuse over 30 min MEDICATION WASTE Product Size: 1000 mg Product Wasted: ___ mg Enoxaparin No Notes: Memor ia 3- (Same as: l 18:00: Lovenox) Julio Cesar 00 Ondansetron No Notes: Kamari esrena 3-01 (Same as: l 17:56: Zofran) [place] 00 MEDICATION WASTE Product Size: 4 mg Product Wasted: ___ mg Dextrometho No Notes: Kamari serena rphan 3-01 (dextromet l Hydrobromid 17:56: horphan-gu Julio Cesar e 2 MG/ML / 00 aifenesin Guaifenesin 10-100mg/5 20 MG/ML ml 10 ml Oral oral SOLN Solution ud) (Same as: Robitussin DM) Sodium 2014-02 No 1,000 mL, Memori a Chloride 1-03 Rate: 25 l 0.154 12:40: ml/hr, Julio Cesar MEQ/ML 00 Infuse Injectable over: 40 Solution hr, Route: IV, Dosing Weight 103.182 kg, Total Volume: 1,000, Start date: 12/12/14 6:40:00, Duration: 30 day, Stop date: 01/11/15 6:39:00 CoQ10 2014-02 Yes 300 mg, Memoria 0-28 PO, Daily, l 20:03: 0 Julio Cesar 00 Refill(s) Vitamin B12 2014-02 Yes 1,000 Memor ia 1000 mcg 0-28 microgram l oral tablet 20:03: = 1 tab, He rmann 00 PO, Daily, 0 Refill(s) Sodium No 1,000 mL, Memori a Chloride 8-27 Rate: 25 l 0.154 11:42: ml/hr, [place] MEQ/ML 00 Infuse Injectable over: 40 Solution hr, Route: IV, Dosing Weight 103.636 kg, Total Volume: 1,000, Start date: 10/05/13 6:42:00, Duration: 30 day, Stop date: 11/04/13 6:41:00 simvastatin Yes 20 mg = 1 M emoria 20 mg oral 8-25 tab, PO, l tablet 15:55: Bedtime, # Erin nn 00 30 tab, 0 Refill(s) 12 HR Yes 500 mg = 1 Memori a ranolazine 8-25 tab, PO, l 500 MG 15:55: BID, # 60 Leonel n Extended 00 tab, 0 Release Refill(s) Tablet [Ranexa] pantoprazol Yes 40 mg = 1 M emoria e 40 mg 8-25 tab, PO, l oral 15:54: Daily, # [place] enteric 00 30 tab, 0 coated Refill(s) tablet Nitroglycer Yes 0.4 mg = 1 Memoria in 0.4 8-25 spray, SL, l MG/ACTUAT 15:54: Q5Min, Leonel n Mucosal 00 Chest [place] Pain, # 12 gm, 0 Refill(s) metoprolol Yes 25 mg = 1 Me moria tartrate 25 8-25 tab, PO, l mg oral 15:54: BID, # 180 Herm kai tablet 00 tab, 0 Refill(s) Potassium Yes 20 mEq = 1 Me moria Chloride 20 8-25 tab, PO, l MEQ 15:53: Daily, # Julio Cesar Extended 00 180 tab, 0 Release Refill(s) Tablet [Klor-Con] isosorbide Yes 30 mg = 1 Me moria mononitrate 8-25 tab, PO, l 30 mg oral 15:53: QAM, # 30 He rmann tablet, 00 tab, 0 extended Refill(s) release Furosemide Yes 40 mg = 1 Me moria 40 MG Oral 8-25 tab, PO, l Tablet 15:53: Daily, # Julio Cesar 00 30 tab, 0 Refill(s) clopidogrel Yes 75 mg = 1 M emoria 75 mg oral 8-25 tab, PO, l tablet 15:52: Daily, # Julio Cesar 00 30 tab, 0 Refill(s) Aspirin 81 Yes 81 mg = 1 Me moria MG Enteric 8-25 tab, PO, l Coated 15:52: Daily, # 0 Erin nn Tablet 00 tab, 0 Refill(s) Klor-Con 20 Klor-Con 20 Yes QD TAKE 1 [facility] MEQ Oral MEQ Oral PACKET ity o f Packet Packet DAILY. [place] [facility] CoQ10 200 CoQ10 200 Yes 1 QD TAKE 1 [facility] vers MG Oral MG Oral CAPSULE ity of Capsule Capsule DAILY [place] [facility] Ranexa 500 Ranexa 500 Yes 1 Q12H TAKE 1 U nivers MG Oral MG Oral TABLET ity of Tablet Tablet EVERY 12 [place] Extended Extended HOURS. Physi ci Release 12 Release 12 ans Hour Hour Plavix 75 Plavix 75 Yes 1 QD TAKE 1 Uni vers MG Oral MG Oral TABLET ity of Tablet Tablet DAILY. [place] [facility] Aspirin Low Aspirin Low Yes 1 Q0.5D TAKE 1 [facility] Dose 81 MG Dose 81 MG TABLET i ty of TABS TABS TWICE [place] DAILY [facility]ici ans Simvastatin Simvastatin Yes TAKE 1 [facility] 40 MG Oral 40 MG Oral TABLET AT ity of Tablet Tablet BEDTIME. [place] [facility] Isosorbide Isosorbide Yes 1 Q0.5D TAKE 1 [facility] Mononitrate Mononitrate TABLET ity of ER 30 MG ER 30 MG TWICE [place] Oral Tablet Oral Tablet DAILY Physici Extended Extended ans Release 24 Release 24 Hour Hour Lasix 40 MG Lasix 40 MG Yes QD TAKE 1 [facility] Oral Tablet Oral Tablet TABLET ity of DAILY [place] DIRECTED. Physici ans Metoprolol Metoprolol Yes Q0.5D TAKE 1 [facility] Tartrate 25 Tartrate 25 TABLET ity of MG Oral MG Oral TWICE [place] Tablet Tablet DAILY. Physici ans Protonix 40 Protonix 40 Yes 1 QD TAKE 1 [facility] MG Oral MG Oral TABLET ity of Tablet Tablet DAILY. [place] Delayed Delayed Physici Release Release ans Jackson 3-6-9 Jackson 3-6-9 Yes 1 Q0.5D TAKE 1 [facility] CAPS CAPS CAPSULE ity of TWICE [place] DAILY [facility]ici ans Vital Signs Vital Name Observation Time Observation Value Comments Source Height 2020-06-06 167.64 cm [facility] n 14:43:00 Weight 2020-06-06 [facility] n 14:43:00 BMI Calculated 2020-06-06 [facility] 14:43:00 Temperature Oral 2020-06-06 97.8 F [facility] rmann (F) 14:39:00 Systolic (mm Hg) 2020-05-24 [facility] rmann 13:25:00 Diastolic (mm Hg) 2020-05-24 [facility] ermann 13:25:00 Heart Rate 2020-05-24 [facility] n 13:25:00 Height 2020-05-24 167.64 cm [facility] n 13:25:00 Weight 2020-05-24 [facility] n 13:25:00 BMI Calculated 2020-05-24 [facility] kai 13:25:00 Systolic (mm Hg) 2019-11-24 [facility] rmann 12:28:00 Diastolic (mm Hg) 2019-11-24 [facility] ermann 12:28:00 Heart Rate 2019-11-24 [facility] n 12:28:00 Temperature Oral 2019-11-24 97.6 F [facility] rmann (F) 12:28:00 Height 2019-11-24 167.64 cm [facility] n 12:28:00 Weight 2019-11-24 [facility] n 12:28:00 BMI Calculated 2019-11-24 [facility] 12:28:00 Temperature Oral 2019-07-20 97.9 [facility] (F) 13:00:00 Heart Rate 2019-07-20 [facility] n 13:00:00 Respitory Rate 2019-07-20 [facility] 13:00:00 Systolic (mm Hg) 2019-07-20 [facility] 13:00:00 Diastolic (mm Hg) 2019-07-20 [facility] 13:00:00 Respitory Rate 2019-07-20 [facility] 12:10:00 Temperature Oral 2019-07-20 98.1 F [facility] (F) 08:27:00 Heart Rate 2019-07-20 [facility] Leonel n 08:27:00 Respitory Rate 2019-07-20 [facility] 08:27:00 Systolic (mm Hg) 2019-07-20 [facility] 08:27:00 Diastolic (mm Hg) 2019-07-20 [facility] 08:27:00 Heart Rate 2019-07-20 [facility] Leonel n 05:16:00 Systolic (mm Hg) 2019-07-20 [facility] 05:16:00 Diastolic (mm Hg) 2019-07-20 [facility] 05:16:00 Temperature Oral 2019-07-20 97.5 F [facility] (F) 01:00:00 Height 2019-07-19 167.64 cm [facility] Leonel n 09:24:00 Weight 2019-07-19 [facility] n 09:24:00 BMI Calculated 2019-07-19 [facility] 09:24:00 Height 2019-07-18 167.64 cm [facility] Leonel n 03:08:00 Weight 2019-07-18 [facility] n 03:08:00 BMI Calculated 2019-07-18 [facility] 03:08:00 Height 2019-07-17 167.64 cm [facility] Leonel n 23:24:00 Weight 2019-07-17 [facility] n 23:24:00 BMI Calculated 2019-07-17 [facility] 23:24:00 Respitory Rate 2019-07-11 [facility] 19:00:00 Systolic (mm Hg) 2019-07-11 [facility] 19:00:00 Diastolic (mm Hg) 2019-07-11 [facility] 19:00:00 Respitory Rate 2019-07-11 [facility] 18:30:00 Systolic (mm Hg) 2019-07-11 [facility] 18:30:00 Diastolic (mm Hg) 2019-07-11 [facility] 18:30:00 Respitory Rate 2019-07-11 [facility] 17:55:00 Systolic (mm Hg) 2019-07-11 [facility] 17:55:00 Diastolic (mm Hg) 2019-07-11 [facility] 17:55:00 Systolic (mm Hg) 2019-06-23 [facility] 16:10:00 Diastolic (mm Hg) 2019-06-23 [facility] 16:10:00 Heart Rate 2019-06-23 [facility] Leonel n 16:10:00 Temperature Oral 2019-06-23 98.2 F [facility]asc[facility] rmann (F) 16:10:00 Height 2019-06-23 167.64 cm [facility] Leonel n 16:10:00 Weight 2019-06-23 [facility] n 16:10:00 BMI Calculated 2019-06-23 [facility] 16:10:00 Height 2019-06-20 167.64 cm [facility] Leonel n 15:37:00 Weight 2019-06-20 [facility] n 15:37:00 BMI Calculated 2019-06-20 [facility] 15:37:00 Systolic (mm Hg) 2019-03-10 [facility] 17:23:00 Diastolic (mm Hg) 2019-03-10 [facility] 17:23:00 Heart Rate 2019-03-10 [facility] Leonel n 17:23:00 Temperature Oral 2019-03-10 97.4 F [facility] Pascual rmann (F) 17:23:00 Height 2019-03-10 167.64 cm [facility] Leonel n 17:23:00 Weight 2019-03-10 [facility] n 17:23:00 BMI Calculated 2019-03-10 [facility] 17:23:00 Systolic (mm Hg) 2018-11-18 [facility] 13:38:00 Diastolic (mm Hg) 2018-11-18 [facility] 13:38:00 Respitory Rate 2018-11-18 [facility] 13:38:00 Systolic (mm Hg) 2018-11-18 [facility] 13:22:00 Diastolic (mm Hg) 2018-11-18 [facility] 13:22:00 Respitory Rate 2018-11-18 [facility] 13:22:00 Respitory Rate 2018-11-18 [facility] 13:07:00 Systolic (mm Hg) 2018-11-18 [facility] 13:07:00 Diastolic (mm Hg) 2018-11-18 [facility] 13:07:00 Weight 2018-11-18 [facility] Leonel n 12:25:00 BMI Calculated 2018-11-18 [facility] 12:25:00 Temperature Oral 2018-11-09 97.5 F [facility] Pascual rmann (F) 15:52:00 Heart Rate 2018-11-09 [facility] Leonel n 15:52:00 Height 2018-11-09 167.64 cm [facility] Leonel n 15:51:00 BP Systolic 2018-08-18 111 mm[Hg] Location: [facility] 09:54:00 Position: [place] [facility] BP Diastolic 2018-08-18 51 mm[Hg] Location: [facility] 09:54:00 Position: [place] [facility] Weight 2018-08-18 231 [lb_av] [facility] 09:54:00 [place] [facility] Body Mass Index 2018-08-18 37.28 kg/m2 [facility] Calculated 09:54:00 [place] [facility] Heart Rate 2018-08-18 66 /min [facility] 09:54:00 [place] [facility] Weight 2018-04-22 [facility] 16:15:00 Height 2018-04-22 [facility] 16:15:00 Diastolic (mm Hg) 2018-04-22 [facility] H ermann 16:15:00 Systolic (mm Hg) 2018-04-22 [facility] 16:15:00 Systolic (mm Hg) 2018-04-15 [facility] 15:06:00 Diastolic (mm Hg) 2018-04-15 [facility] 15:06:00 Heart Rate 2018-04-15 [facility] 15:06:00 Temperature Oral 2018-04-15 98.1 F [facility] (F[facility] 15:06:00 BMI Calculated 2018-04-15 [facility] 15:06:00 Height 2018-04-15 167.64 cm [facility] 15:06:00 Weight 2018-04-15 [facility] 15:06:00 Systolic (mm Hg) 2018-04-02 [facility] 21:06:00 Diastolic (mm Hg) 2018-04-02 [facility] 21:06:00 Temperature Oral 2018-04-02 98.5 F [facility] (F) 21:06:00 Respitory Rate 2018-04-02 [facility] 21:06:00 Heart Rate 2018-04-02 [facility] 21:06:00 Weight 2018-04-02 [facility] 18:54:00 BMI Calculated 2018-04-02 [facility] 18:54:00 Temperature Oral 2018-04-02 98.1 F [facility]ner rmann (F) 18:54:00 Height 2018-04-02 167.64 cm [facility] 18:54:00 Respitory Rate 2018-04-02 [facility] 18:54:00 Heart Rate 2018-04-02 [facility] 18:54:00 Systolic (mm Hg) 2018-04-02 [facility] 18:54:00 Diastolic (mm Hg) 2018-04-02 [facility] Gavin ermann 18:54:00 BP Systolic 2018-02-17 109 mm[Hg] Location: [facility] 09:43:00 Position: [place] [facility] BP Diastolic 2018-02-17 68 mm[Hg] [facility] [facility] 09:43:00 Position: [place] Physician s Sitting Height 2018-02-17 66 [in_us] [facility] of 09:43:00 [place] Physician s Heart Rate 2018-02-17 59 /min Location: L [facility] 09:43:00 Radial; [place] Physician s BP Systolic 2017-11-18 121 mm[Hg] Location: [facility] 10:15:00 Position: [place] Physician s Sitting BP Diastolic 2017-11-18 69 mm[Hg] Location: [facility] 10:15:00 Position: [place] Physician s Sitting Height 2017-11-18 66 [in_us] [facility] 10:15:00 [place] Phys[place] s Heart Rate 2017-11-18 63 /min Location: R [facility] 10:15:00 Radial; [place] Physician s Height 2017-10-13 167.64 cm [facility] 16:20:00 Weight 2017-10-13 [facility] 16:20:00 BMI Calculated 2017-10-13 [facility] 16:20:00 Respitory Rate 2017-10-13 [facility] 16:20:00 Heart Rate 2017-10-13 [facility] 16:20:00 Systolic (mm Hg) 2017-10-13 [facility] 16:20:00 Diastolic (mm Hg) 2017-10-13 [facility] 16:20:00 Respitory Rate 2017-09-23 [facility] 21:57:00 Heart Rate 2017-09-23 [facility] 21:57:00 Temperature Oral 2017-09-23 97.4 F [facility] (F) 21:57:00 Systolic (mm Hg) 2017-09-23 [facility] 21:57:00 Diastolic (mm Hg) 2017-09-23 [facility] 21:57:00 Heart Rate 2017-09-23 [facility] 17:16:00 Temperature Oral 2017-09-23 97.5 F [facility] (F) 17:16:00 Respitory Rate 2017-09-23 [facility] 17:16:00 Systolic (mm Hg) 2017-09-23 [facility] 17:16:00 Diastolic (mm Hg) 2017-09-23 [facility] 17:16:00 Systolic (mm Hg) 2017-09-23 [facility] 13:27:00 Diastolic (mm Hg) 2017-09-23 [facility] 13:27:00 Heart Rate 2017-09-23 [facility] 13:27:00 Respitory Rate 2017-09-23 [facility] 13:27:00 Temperature Oral 2017-09-23 97.8 F [facility] (F) 13:27:00 BMI Calculated 2017-09-22 [facility] 21:19:00 Weight 2017-09-22 [facility] 21:19:00 Height 2017-09-22 167.64 cm [facility] 21:19:00 BMI Calculated 2017-09-22 [facility] 14:57:00 Weight 2017-09-22 [facility] 14:57:00 Height 2017-09-22 170.18 cm [facility] 14:57:00 Temperature Oral 2017-09-16 97.8 F [facility] (F) 17:00:00 Heart Rate 2017-09-16 [facility] 17:00:00 Respitory Rate 2017-09-16 [facility] 17:00:00 Systolic (mm Hg) 2017-09-16 [facility] 17:00:00 Diastolic (mm Hg) 2017-09-16 [facility] 17:00:00 Respitory Rate 2017-09-16 [facility] 13:50:00 Heart Rate 2017-09-16 [facility] 13:08:00 Respitory Rate 2017-09-16 [facility] 13:08:00 Systolic (mm Hg) 2017-09-16 [facility] 13:08:00 Diastolic (mm Hg) 2017-09-16 [facility] 13:08:00 Temperature Oral 2017-09-16 98.1 F [facility] (F) 13:08:00 Temperature Oral 2017-09-16 97.9 F [facility] (F) 09:00:00 Systolic (mm Hg) 2017-09-16 [facility] 09:00:00 Diastolic (mm Hg) 2017-09-16 [facility] 09:00:00 Heart Rate 2017-09-16 [facility] 09:00:00 Systolic (mm Hg) 2017-09-03 [facility] 13:30:00 Diastolic (mm Hg) 2017-09-03 [facility] 13:30:00 Respitory Rate 2017-09-03 [facility] 13:30:00 Systolic (mm Hg) 2017-09-03 [facility] 13:15:00 Diastolic (mm Hg) 2017-09-03 [facility] 13:15:00 Respitory Rate 2017-09-03 [facility] 13:15:00 Respitory Rate 2017-09-03 [facility] 13:00:00 Systolic (mm Hg) 2017-09-03 [facility] 13:00:00 Diastolic (mm Hg) 2017-09-03 [facility] 13:00:00 Heart Rate 2017-09-03 [facility] 12:01:00 Weight 2017-09-03 [facility] 11:55:00 Height 2017-09-03 167.64 cm [facility] 11:55:00 BMI Calculated 2017-09-03 [facility] 11:55:00 Heart Rate 2017-08-31 [facility] 17:20:00 Temperature Oral 2017-08-31 98.2 F [facility] Pascual rmann (F) 17:20:00 Height 2017-08-31 167.64 cm [facility] 16:41:00 Weight 2017-08-31 [facility] 16:41:00 BMI Calculated 2017-08-31 [facility] 16:41:00 BMI Calculated 2017-08-24 [facility] 15:15:00 Temperature Oral 2017-08-24 97.7 F [facility] (F) 15:15:00 Heart Rate 2017-08-24 [facility] 15:15:00 Systolic (mm Hg) 2017-08-24 [facility] 15:15:00 Diastolic (mm Hg) 2017-08-24 [facility] 15:15:00 Weight 2017-08-24 [facility] 15:15:00 Height 2017-08-24 167.64 cm [facility] 15:15:00 BP Systolic 2017-07-20 120 mm[Hg] Location: [facility] 08:34:00 Position: [place] Physician s Sitting BP Diastolic 2017-07-20 62 mm[Hg] Location: [facility] 08:34:00 Position: [place] Physician s Sitting Weight 2017-07-20 228 [lb_av] [facility] 08:34:00 [place] Physician s Body Mass Index 2017-07-20 36.8 kg/m2 University o f Calculated 08:34:00 [place] Physician s Heart Rate 2017-07-20 65 /min [facility] 08:34:00 [place] Physician s BP Systolic 2017-05-20 109 mm[Hg] Location: [facility] 10:00:00 Position: [place] Physician s Sitting BP Diastolic 2017-05-20 61 mm[Hg] Location: [facility] 10:00:00 Position: [place] Physician s Sitting Weight 2017-05-20 228 [lb_av] [facility] 10:00:00 [place] Physician s Body Mass Index 2017-05-20 36.8 kg/m2 University o f Calculated 10:00:00 [place] Phys[facility] Heart Rate 2017-05-20 61 /min University 10:00:00 [place] Phys[place] BMI Calculated 2017-03-24 [facility] 13:55:00 Weight 2017-03-24 [facility] 13:55:00 Height 2017-03-24 167.64 cm [facility] Leonel n 13:55:00 Systolic (mm Hg) 2017-03-24 [facility] 13:55:00 Diastolic (mm Hg) 2017-03-24 [facility] 13:55:00 Temperature Oral 2017-03-24 97.7 F [facility] He rmann (F) 13:55:00 Heart Rate 2017-03-24 [facility] 13:55:00 Systolic (mm Hg) 2017-02-13 [facility] 13:14:00 Diastolic (mm Hg) 2017-02-13 [facility] 13:14:00 Temperature Oral 2017-02-13 98.3 F [facility] (F) 13:14:00 Heart Rate 2017-02-13 [facility] 13:14:00 Height 2017-02-13 167.64 cm [facility] 13:14:00 BMI Calculated 2017-02-13 [facility] 13:14:00 Weight 2017-02-13 [facility] 13:14:00 BP Systolic 2017-01-21 121 mm[Hg] Location: [facility] 10:47:00 Position: [place] Physician s Sitting BP Diastolic 2017-01-21 60 mm[Hg] Location: [facility] 10:47:00 Position: [place] Physician s Sitting Height 2017-01-21 66 [in_us] [facility] 10:47:00 [place] Physician s Heart Rate 2017-01-21 61 /min Location: [facility] 10:47:00 Radial; [place] Physician s Heart Rate 2015-10-13 [facility] 22:11:00 Systolic (mm Hg) 2015-10-13 [facility] 22:11:00 Diastolic (mm Hg) 2015-10-13 [facility] 22:11:00 Respitory Rate 2015-10-13 [facility] 22:11:00 Heart Rate 2015-10-13 [facility] 20:31:00 Systolic (mm Hg) 2015-10-13 [facility] 20:31:00 Diastolic (mm Hg) 2015-10-13 [facility] 20:31:00 Respitory Rate 2015-10-13 [facility] 20:31:00 Weight 2015-10-13 [facility] 17:07:00 Systolic (mm Hg) 2015-10-13 [facility] 17:07:00 Diastolic (mm Hg) 2015-10-13 [facility] 17:07:00 Heart Rate 2015-10-13 [facility] 17:07:00 Temperature Oral 2015-10-13 97.7 F [facility] (F) 17:07:00 Respitory Rate 2015-10-13 [facility] 17:07:00 Weight 2015-05-15 [facility] 21:49:00 Temperature Oral 2015-05-15 98.1 F [facility] (F) 21:49:00 Heart Rate 2015-05-15 [facility] 21:49:00 Respitory Rate 2015-05-15 [facility] 21:49:00 Systolic (mm Hg) 2015-05-15 [facility] 21:49:00 Diastolic (mm Hg) 2015-05-15 [facility] 21:49:00 Height 2015-05-15 167.64 cm [facility] 21:49:00 BMI Calculated 2015-05-15 [facility] 21:49:00 Respitory Rate 2015-04-11 [facility] 17:05:00 Systolic (mm Hg) 2015-04-11 [facility] 17:05:00 Diastolic (mm Hg) 2015-04-11 [facility] 17:05:00 Heart Rate 2015-04-11 [facility] 17:05:00 Temperature Oral 2015-04-11 97.5 F [facility] (F) 17:05:00 Heart Rate 2015-04-11 [facility] 13:19:00 Temperature Oral 2015-04-11 98.1 F [facility] (F) 13:19:00 Systolic (mm Hg) 2015-04-11 [facility] 13:19:00 Diastolic (mm Hg) 2015-04-11 [facility] 13:19:00 Respitory Rate 2015-04-11 [facility] 13:19:00 Respitory Rate 2015-04-11 [facility] 12:36:00 Heart Rate 2015-04-11 [facility] 10:45:00 Systolic (mm Hg) 2015-04-11 [facility] 10:45:00 Diastolic (mm Hg) 2015-04-11 [facility] 10:45:00 Temperature Oral 2015-04-11 98 F [facility] (F) 10:45:00 BMI Calculated 2015-04-10 [facility] 17:20:00 Weight 2015-04-10 [facility] 17:20:00 Height 2015-04-10 167.64 cm [facility] 17:20:00 Systolic (mm Hg) 2014-12-12 [facility] 15:15:00 Diastolic (mm Hg) 2014-12-12 [facility] 15:15:00 Respitory Rate 2014-12-12 [facility] 15:15:00 Respitory Rate 2014-12-12 [facility] 15:00:00 Systolic (mm Hg) 2014-12-12 [facility] 15:00:00 Diastolic (mm Hg) 2014-12-12 [facility] 15:00:00 Respitory Rate 2014-12-12 [facility] 14:45:00 Systolic (mm Hg) 2014-12-12 [facility] 14:45:00 Diastolic (mm Hg) 2014-12-12 [facility] 14:45:00 Heart Rate 2014-12-12 [facility] 13:12:00 Temperature Oral 2014-12-06 97.9 F [facility] (F) 19:50:00 Heart Rate 2014-12-06 [facility] 19:50:00 Height 2014-12-06 167.64 cm [facility] 19:50:00 BMI Calculated 2014-12-06 [facility] 19:50:00 Weight 2014-12-06 [facility] 19:50:00 Diastolic (mm Hg) 2013-10-05 [facility] 13:24:00 Systolic (mm Hg) 2013-10-05 [facility] 13:24:00 Respitory Rate 2013-10-05 [facility] 13:24:00 Diastolic (mm Hg) 2013-10-05 [facility] 13:09:00 Systolic (mm Hg) 2013-10-05 [facility] 13:09:00 Respitory Rate 2013-10-05 [facility] 13:09:00 Diastolic (mm Hg) 2013-10-05 [facility] 12:54:00 Systolic (mm Hg) 2013-10-05 [facility] 12:54:00 Respitory Rate 2013-10-05 [facility] 12:54:00 Heart Rate 2013-10-03 [facility] 16:17:00 Temperature Oral 2013-10-03 97.8 F [facility] (F) 16:17:00 Weight 2013-10-03 [facility] 15:59:00 BMI Calculated 2013-10-03 [facility] 15:59:00 Height 2013-10-03 167.64 cm [facility] 15:59:00 Procedures Procedure Date / Time Performing Clinician Source Performed Post Op Promis 29 Survey 2019-08-10 00:00:00 [facility] [place] [facility] Complete repair of rotator 2019-07-11 05:00:00 [facility] cuff Initial Promis 29 Survey 2019-06-15 00:00:00 [facility] [place] [facility] XRAY Ribs unilateral [id number] 2019-04-20 00:00:00 [facility] [place] [facility] MR Shoulder wo contrast 2019-04-20 00:00:00 [facility] [place] [address] Physicians [U] XRAY SHOULDER MIN 2 2019-04-19 00:00:00 [facility] RIGHT [address] Physicians [U] XRAY SPINE CERVICAL 2 2019-04-19 00:00:00 [facility] [place] OR 3 [facility] [address] Physicians Colonoscopy and biopsy of 2018-11-18 05:00:00 Me morial [place] colon<sup>1</sup> [U] XRAY KNEE 3 VWS LEFT 2018-08-18 00:00:00 [facility] [place] [address] Physicians [U] XRAY KNEE 3 [facility] LEFT 2017-09-25 00:00:00 [facility] [place] [address] Physicians 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 05:00:00 Me morial [place] knee joint Colonoscopy and biopsy of 2017-09-03 05:00:00 Me morial [place] colon<sup>2</sup> [U] XRAY KNEE 3 VWS LEFT 2017-07-20 00:00:00 [facility] [place] [address] Physicians [U] XRAY KNEE 3 VWS LEFT 2017-05-20 00:00:00 [facility] of [place] [address] Physicians [U] XRAY ELBOW MIN 3 S 2017-01-21 00:00:00 [facility] [place] RIGHT [address] Physicians Insertion of coronary 2016-08-09 00:00:00 Dereck Dennis artery stent<sup>3</sup> Colonoscopy<sup>4</sup> 2014-12-12 06:00:00 Kamari Harrell Colonoscopy 2014-12-10 05:00:00 Terry coon CABG x 3 - Coronary artery 1990-02-09 06:00:00 M emorilucinda Harrell bypass grafts x 3 [facility] Arthrotomy<sup>5, 6</sup> Dereck Dennis Cardiac catheterization, Chantal Harrell left heart<sup>7</sup> Coronary artery bypass [facility] graft<sup>7</sup> History of Arthroscopy [facility] Knee Left Physicians History of Heart surgery [facility] Physicians History of Shoulder [facility] [place] Arthroscopy With Rotator Physici ans Cuff Repair Encounters Start End Encounter Admission Attending Care Care Encounter Source Date/Time Date/Time Type Type Clinicians Facility Department ID 2020-07-25 [facility] [id number] [place] 08:37:23 E, [facility] 2020-07-25 Outpatient [facility] [id number] [place] 07:44:01 Health 2020-06-16 Outpatient [facility] [id number] [place] 03:22:27 E, [facility] 2020-07-25 2020-07-25 Office Titus [facility] [id number] 07:40:04 08:38:05 Visit Sharri franklin BRIELLE [id number] MEDICAL [id number] [address] [id number] 2020-07-20 2020-07-20 Abstract DipakPoole [facility] [id number] 00:00:00 00:00:00 Sharri franklinTIP [id number] MEDICAL [id number] [address] [id number] 2020-06-25 2020-06-25 Outpatient Octavio [facility] [id number] 14:30:00 14:30:00 Kenton Marin 25 2020-06-22 2020-06-22 Outpatient VISIT, [facility] [id number] 09:00:00 09:00:00 NURSE UASYLVIA 24 2020-06-06 2020-06-06 Outpatient FREDDIE Cunningham [facility] [id number] 09:50:00 23:59:59 Kenton Marin 23 2020-05-25 2020-05-26 Outpatient [facility] [id number] 06:47:54 06:47:54 35 2020-05-24 2020-05-24 Outpatient Dipak [facility] [id number] 08:30:00 23:59:59 Kevin 22 2020-01-25 2020-01-25 Appointmen [facility] Orthopedics [id number] [facility] 09:00:00 09:00:00 t; [facility]RI [facility] CHERYL Agustin [facility] SHARRI LYNN [facility] Vamsi [facility] 2020-01-21 2020-01-21 Laboratory Lab, [facility] [id number] 18:32:47 18:52:47 Only Fam P[facility] Health [id number] [place] [id number] Professio [id number] nal 044 [address] One 2020-01-21 2020-01-21 Letter Doctor CLARENCE [id number] [id number] 00:00:00 00:00:00 (Out) Unassigned, SYBIL [id number] [facility] [id number] 2019-11-10 2019-12-09 Outpatient Quesada-Poole 2.16.840. 2.16.840. 1. [id number] 09:00:00 23:59:00 Sharri franklin [id number] 2019-12-04 2019-12-05 Outpatient MHMG MHMG [id number] 14:24:03 14:24:03 32 2019-12-04 2019-12-05 Outpatient MHMG MHMG [id number] 12:57:05 12:57:05 31 2019-12-01 2019-12-01 Outpatient Dipak, HERMANOIP MHOIP [id number] 13:02:00 23:59:00 Kevin 2019-11-29 2019-11-30 Outpatient MHMG MHMG [id number] 09:11:58 23:59:59 05 2019-11-25 2019-11-26 Outpatient MHMG MHMG [id number] 17:04:40 23:59:59 04 2019-11-25 2019-11-25 Appointmen [facility] [id number] [facility] 08:45:00 08:45:00 t; SHARRI [place] i ty of QUESADAMERCY .Amanda II [place] SHARRI LYNN, Physi ci M.DJj ans 2019-11-24 2019-11-24 Outpatient FREDDIE Quesada MG [id number] 07:15:00 23:59:59 Kevin 21 2019-10-10 2019-11-08 Outpatient Titus 2.16.840. 2.16.840. 1. [id number] 10:00:00 23:59:00 Sharri franklin [id number] 2019-10-14 2019-10-14 Appointmen [facility] Orthopedics [id number] Univers 08:00:00 08:00:00 t; SHARRI [place] i [place] of QUESADAMERCY Kyleigh II [place] SHARRI LYNN, Physi ci M.D. ans 2019-09-02 2019-09-02 Appointmen [facility] Orthopedics [id number] Univers 08:00:00 08:00:00 t; SHARRI [place] i [place] of QUESADAMERCY Kyleigh II [place] SHANE SHARRI, Physi ci M.D. ans 2019-08-30 2019-08-30 Outpatient HERMAN ZarateOIP MHOIP [id number] 12:15:00 23:59:00 Zeina Khalil 08 2019-07-14 2019-08-12 Outpatient Titus 2.16.840. 2.16.840. 1. [id number] 11:45:00 23:59:00 Sharri franklin [id number] 2019-07-22 2019-07-22 Appointmen TURNER [facility] Orthopedics [id number] Univers 10:00:00 10:00:00 t; Kit PASTRANA of PRANAV TOMPKINS II [place] Murtaza PASTRANA APRN ans 2019-07-17 2019-07-20 Outpatient CHANDRA Mccoy MHPL [id number] 12:06:43 13:10:00 Dorothea 27 2019-07-11 2019-07-[address] [facility]PL [id number] 05:34:00 14:04:00 Sharri franklin 25 2019-07-11 2019-07-11 [facility] [id number] Univers 09:00:00 09:00:00 t; SHARRI [place] i [place] of CHERYL Agustin II [place] RESHARRI, Physi ci M.D. ans 2019-07-11 2019-07-11 Outpatient BL BL [id number] MHBL 05:34:00 05:34:00 2019-06-27 2019-06-27 [facility] [id number] Univers 10:00:00 10:00:00 t; SH[facility]RI [place] [facility] Vamsi [facility] [place] SHARRI LYNN, Physi ci M.DJj ans 2019-06-25 2019-06-26 [id number] 12:07:56 12:07:56 26 2019-06-23 2019-06-23 [facility] [id number] 11:00:00 23:59:59 Kevin 20 2019-05-13 2019-05-13 [facility] [id number] Univers 08:30:00 08:30:00 t; SHARRI [place] [facility] [place] [facility] Vamsi [place] SHARRI LYNN, Physi ci M.DJj ans 2019-05-10 2019-05-10 Appointmen [facility] Orthopedics [id number] Univers 12:00:00 12:00:00 t; [facility] Vamsi BURROWS Physici M.DJj ans 2019-05-06 2019-05-06 Outpatient Bessie MHOIP MHOIP [id number] 10:23:00 23:59:00 Deirdre Mccann 2019-04-20 2019-04-20 Appointmen BESSIE [facility] Orthopedics [id number] Univers 10:30:00 10:30:00 t; BESSIE MCCANN, - [place] ity [facility] MARKOS, MKyleigh Hauser M.D. ans 2019-03-16 2019-03-17 Outpatient MHMG MHMG [id number] 09:11:32 09:11:32 24 2019-03-14 2019-03-14 Outpatient Elhor MHOIP MHOIP [id number] 10:32:00 23:59:00 Fei Luis Akuvi 2019-03-10 2019-03-10 Outpatient Dipak, MHMG MHMG [id number] 11:30:00 23:59:59 Kevin 19 2018-11-23 2018-11-23 Outpatient VISIT, MHMG MHMG [id number] 09:30:00 09:30:00 NURSE CCP 18 2018-11-18 2018-11-18 Outpatient Salina, MHSE MHSE [id number] 06:19:00 08:47:00 El 22 Shree 2018-11-18 2018-11-18 Outpatient MHSE MHSE [id number] 06:19:00 06:19:00 [facility] 2018-08-18 2018-08-18 [facility]OILA TOM[facility]INS Orthopedics [id number] [facility] 09:00:00 09:00:00 t; ZEINA - [facility] Murtaza PASTRANA APRN ans 2018-04-22 2018-04-22 Outpatient [facility] [id number] eClinic 11:15:00 11:15:00 [facility] Vein (PL) al Works Vein (PL) 2018-04-19 2018-04-20 Outpatient MHMG MHMG [id number] 08:35:00 23:59:59 03 2018-04-15 2018-04-16 Outpatient MHMG MHMG [id number] 12:57:13 12:57:13 21 2018-04-15 2018-04-16 Outpatient MHMG MHMG [id number] 12:38:13 12:38:13 20 2018-04-15 2018-04-16 Outpatient MHMG MHMG [id number] 12:37:46 12:37:46 19 2018-04-15 2018-04-15 Outpatient Elhor MHMG MHMG [id number] 09:00:00 23:59:59 Jerrodguillermo, 17 Akuvi 2018-04-15 2018-04-15 Outpatient Elhor MHPL MHPL [id number] 10:07:00 23:59:00 Warren Luis 2018-04-02 2018-04-02 Outpatient Suzi, PL [facility] [id number] 12:28:00 15:11:00 Dhruv Dee Dee Hollis 2018-02-17 2018-02-17 Appointmen BHANUMERCYStefani [facility] [id number] Univers 10:00:00 10:00:00 t; ZEINA, Orthopedics it y of [facility] ZEINA 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 2.16.840. 1. [id number] 09:45:00 23:59:00 Sharri franklin [id number] 2017-11-18 2017-11-18 [facility] [id number] Univers 10:30:00 10:30:00 t; ZEINA, Orthopedics it y of [facility] ZEINA Physici PIE MAKER MACHINE ans 2017-09-30 2017-10-29 Outpatient Dipak-Poole 2.16.840. 2.16.840. 1. [id number] 10:45:00 23:59:00 Sharri franklin [id number] 2017-10-13 2017-10-13 Outpatient Dipak [facility] [id number] 11:15:00 23:59:59 Kevin 16 2017-10-06 2017-10-06 [facility] [id number] Univers 13:00:00 13:00:00 t; ZEINA, Orthopedics it y of [facility] ZIENA Physici PIE MAKER MACHINE ans 2017-10-02 2017-10-02 [facility] [id number] Univers 11:15:00 11:15:00 t; ZEINA, Orthopedics it y of [facility] ZEINA Physici PIE MAKER MACHINE ans 2017-09-25 2017-09-25 Appointmen JOANNPOOLE [facility] [id number] Univers 10:15:00 10:15:00 t; SHARRI [facility] Orthopedics itkelly CHERYL Agustin [facility] SHARRI LYNN Physi ci M.Amanda ans 2017-09-22 2017-09-23 Outpatient Evan, MHPL MHPL [id number] 09:50:00 18:00:00 Cresencio 11 2017-09-15 2017-09-16 Outpatient Titus MHSE MHSE [id number] 08:33:00 16:55:00 Sharri franklin 09 2017-09-15 2017-09-15 Appointmen TITUS [facility] [id number] Univers 09:00:00 09:00:00 t; SHARRI [facility] Orthopedics itkelly CHERYL [facility] SHARRI LYNN Physi ci M.DJj ans 2017-09-03 2017-09-03 Outpatient Salina, MHSE MHSE [id number] 05:45:00 08:50:[address] 2017-08-24 2017-08-24 Outpatient HERMAN QuesadaMG MG [id number] 10:30:00 23:59:59 Kevin 2017-08-24 2017-08-24 Outpatient Dipak MHOIP MHOIP [id number] 11:57:00 23:59:00 Kevin 05 2017-07-20 2017-07-20 Appointmen [facility] Orthopedics [id number] Univers 08:30:00 08:30:00 t; SHARRI [place] ty CHERYL Agustin [facility] SHARRI LYNN Physi ci M.DJj ans 2017-05-26 2017-06-24 Outpatient Titus 2.16.840. 2.16.840. 1. [id number] 10:00:00 23:59:00 Sharri franklin [id number] 2017-05-20 2017-05-20 Appointmen ZOILA TOMPKINS Orthopedics [id number] Univers 09:45:00 09:45:00 t; Kit PASTRANA of RPANAV TOMPKINS II [place] Murtaza PASTRANA APRN [facility] 2017-03-24 2017-03-24 Outpatient Quesada, MHMG MHMG [id number] 08:00:00 23:59:59 Kevin 14 2017-03-16 2017-03-16 Appointmen ZOILA TOMPKINS [place] [id number] Univers 10:45:00 10:45:00 t; CIRO PASTRANA Orthopedics ity [facility] CIRO PASTRANA Physi ci ans 2017-03-11 2017-03-11 Appointmen TURNER, [facility] [id number] Univers 11:00:00 11:00:00 t; CIRO PASTRANA Orthopedics ity [facility] CIRO PASTRANA Physi ci ans 2017-03-04 2017-03-04 Appointmen BHANUMERCYStefani, [facility] [id number] Univers 11:00:00 11:00:00 t; CIRO PASTRANA Orthopedics ity [facility] CIRO PASTRANA Physi ci ans 2017-02-19 2017-02-19 Outpatient Hust, MHOIH MHOIH [id number] 11:23:00 23:59:00 Zeina Khalil 04 2017-02-13 2017-02-13 Outpatient Quesada, [facility] [id number] 07:15:00 23:59:59 Kevin 13 2017-02-13 2017-02-13 Outpatient Quesada, [facility] [id number] 07:15:00 23:59:59 Ekvin 13 2017-01-21 2017[facility] [place] [id number] Univers 10:45:00 10:45:00 t; [facility] 2016-08-07 2016-08-07 Outpatient Lev MHOIP MHOIP [id number] 15:13:00 23:59:00 Angelia Newton 2016-07-16 2016-07-16 Appointmen ZOILA TOMPKINS UTP [id number] Univers 10:45:00 10:45:00 t; CIRO PASTRANA [facility] of [place], [place] CIRO PASTRANA Physi ci ans 2016-07-09 2016-07-09 Appointmen ZOILA TOMPKINS UTP [id number] Univers 10:45:00 10:45:00 t; CIRO PASTRANA [facility] [place] 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, 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 Physi ci ans 2016-07-02 2016-07-02 [facility] [id number] Univers 10:45:00 10:45:00 t; ZEINA, 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 [facility] of [place], [place] 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, 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 Physi ci ans 2016-06-02 2016-06-02 Appointmen TURNER, UTP UTP [id number] [facility] 08:30:00 08:30:00 t; ZEINA 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 it[facility] of [place], [place] ZEINA, 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 Physi ci ans 2016-04-28 2016-04-28 Appointmen TURNER, UTP UTP [id number] [facility] 14:15:00 14:15:00 t; ZEINA 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 it[facility] of [place], [place] ZEINA, 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 Physi ci ans 2015-10-13 2015-10-13 Outpatient Doug, MHPL MHPL [id number] 12:01:00 17:09:00 [facility] 2015-[facility]11 2015-06-11 Outpatient Quesada, MHOIP MHOIP [id number] 15:23:00 23:59:00 Kevin 00 2015-05-15 2015-05-15 Outpatient Biancahumphrey, MHPL MHPL [id number] 16:47:00 20:33:00 Pilo 04 Rambo 2015-04-10 2015-04-11 Outpatient Jhon Villanueva MHSE MHSE [id number] 10:53:00 11:50:00 Colt Carmona 2015-04-09 2015-04-09 Outpatient MIKY MHOIP MHOIP [id number] 11:32:00 23:59:00 PHILOMENA 2015-01-08 2015-01-08 Outpatient MERE, MHOIP MHOIP [id number] 14:01:00 23:59:00 DACIA MAI 00 2014-12-12 2014-12-12 Outpatient aSlina, MHSE MHSE [id number] 05:55:00 09:30:00 El [place] 01 2013-10-05 2013-10-05 Outpatient Salina, MHHS MHHS [id number] 05:41:00 08:35:00 El [place] 00 Results Test Description Test Time Test Comments Results Result Comments Source ENDOCRINOLOGY 2020-05-24 287 [facility] 14:33:00 CHEM PANEL 2019-11-24 101 [facility] 13:35:00 CHEM PANEL 2019-11-24 17 [facility] 13:35:00 CHEM PANEL 2019-11-24 1.15 [facility] 13:35:00 CHEM PANEL 2019-11-24 62 [facility] 13:35:00 CHEM PANEL 2019-11-24 72 [facility] 13:35:00 CHEM PANEL 2019-11-24 144 [facility] 13:35:00 CHEM PANEL 2019-11-24 3.9 [facility] 13:35:00 CHEM PANEL 2019-11-24 104 [facility] 13:35:00 CHEM PANEL 2019-11-24 30 [facility] 13:35:00 CHEM PANEL 2019-11-24 9.3 [facility] 13:35:00 CHEM PANEL 2019-11-24 6.7 [facility] 13:35:00 CHEM PANEL 2019-11-24 4.4 [facility] 13:35:00 CHEM PANEL 2019-11-24 2.3 [facility] 13:35:00 CHEM PANEL 2019-11-24 1.9 [facility] 13:35:00 CHEM PANEL 2019-11-24 1.3 [facility] 13:35:00 CHEM PANEL 2019-11-24 63 [facility] 13:35:00 CHEM PANEL 2019-11-24 15 [facility] 13:35:00 CHEM PANEL 2019-11-24 17 [facility] 13:35:00 LIPIDS 2019-11-24 162 [facility] 13:35:00 LIPIDS 2019-11-24 60 [facility] 13:35:00 LIPIDS 2019-11-24 135 [facility] 13:35:00 LIPIDS 2019-11-24 79 [facility] 13:35:00 LIPIDS 2019-11-24 2.7 [facility] 13:35:00 LIPIDS 2019-11-24 102 [facility] 13:35:00 SPECIAL CHEMISTRY 2019-11-24 5.3 [facility] 13:35:00 SPECIAL CHEMISTRY 2019-11-24 0.8 [facility] 13:35:00 URINE CHEM 2019-11-24 36 [facility] 13:35:00 URINE CHEM 2019-11-24 0.2 [facility] 13:35:00 URINE CHEM 2019-11-24 6 [facility] 13:35:00 Post Op Promis 29 Survey 2019-08-11 20:31:52 Test Item Value Reference Range Interpretation Comme nts Pain Interference: (test code = Pain Interference:) 68.6 1 N Pain Intensity: (test code = Pain Intensity:) 52.3 1 N Physical Function: (test code = Physical Function:) 30.4 1 N Satisfaction Role: (test code = Satisfaction Role:) 36.6 1 N [facility]iciansCHE[facility] BEHZY5103-20-84 09:07:43186G[facility]p [place] CHEM EFUVO2574-01-44 09:07:0020[facility]annCHEM DBTWB8483-15-57 09:07:001.19 [facility]annCHEM WSEOP1231-82-95 09:07:38646Ecattdbv HermannCHEM PANEL 2019-07-20 09:07:003.2[facility] HermannCHEM XLTLX5262-13-82 09:07:33007Zmlugchb HermannCHEM PUTUR1529-80-19 09:07:0030[facility]annCHEM GUXBG4528-86-44 09:07:009.2[facility]annCHEM LPPQH9905-92-76 09:07:0010.2[facility]annCHEM CEUDK9512-88-25 09:07:0060[facility]annCHEM KIFDE9611-04-45 08:51:0088 [facility]annCHEM DKRRX2123-32-32 08:51:0018[facility]annCHEM PANEL 2019-07-19 08:51:001.06[facility] HermannCHEM XCCBL7108-71-43 08:51:01250Qnzlkuqz HermannCHEM KYUTN6975-03-28 08:51:003.4[facility] HermannCHEM RIECT3336-02-96 08:51:21297Cmsgtnxt HermannCHEM LYUIY2153-06-01 08:51:0032[facility]annCHEM EITCA7737-64-86 08:51:008.8[facility]annCHEM USXML9131-92-82 08:51:009.4 [facility]annCHEM UFCAX7595-89-52 08:51:0069[facility] HermannCARDIAC ENZYMES 2019-07-18 06:30:000.06[facility]annCHEM ORWYV7942-37-81 06:30:96685Ifvsgqwk HermannCHEM WMPDR3170-31-80 06:30:0018[facility]annCHEM MRXKF9456-39-57 06:30:000.99[facility]annCHEM DNSUG9632-23-07 06:30:90763Xukmdmfj HermannCHEM UAEDX9621-02-42 06:30:003.6[facility]annCHEM DBIOP8132-54-93 06:30:11623 [facility]annCHEM ICMVN4686-81-57 06:30:0029[facility] HermannCHEM PANEL 2019-07-18 06:30:008.7[facility]annCHEM KQMAH0891-76-53 06:30:009.[facility] HermannCHEM ZIDMO1137-81-43 06:30:0074[facility] YkqmqozXJLVQBYKIK1292-80-56 06:30:006.2[facility] RpnqugiEOENILCUHE2071-74-55 06:30:004.31[facility] XWROHXAUON9785-34-54 06:30:0013.7[facility] YhyvuekXVLYRYYGOC7338-03-62 06:30:00 39.1[facility] QnldtbmLILMTUFLXQ4265-56-01 06:30:0090.6[facility] HermannHEMATOLOGY 2019-07-18 06:30:00 Test Item Value Reference Range Interpretation Comments MCH (test code = MCH) 31.7 pg 27.0-31.0 [facility] TwzaqupZNYBAAAZYC2385-73-68 06:30:0035.0[facility] HermannHEMATOLOGY 2019-07-18 06:30:0013.6[facility] XdrqqttBEVKMXFTOF2500-51-36 06:30:15229Imupwhku YtugxzzHIRUTZCKUS5118-68-75 06:30:008.6[facility] HermannSPECIAL CHEMISTRY 2019-07-18 06:30:005.8[facility] HermannCARDIAC FXWJXFK8946-72-86 00:15:000.07 [facility]annCARDIAC SFSNAFE1973-57-72 17:50:13904Rtrowwrn HermannCARDIAC PBXRQEA6674-17-02 17:50:000.13[facility] HermannCHEM NSAQI9925-74-56 17:50:007.0 [facility]annCHEM ELTJH8567-04-87 17:50:003.4[facility] HermannCHEM PANEL 2019-07-17 17:50:0027[facility] HermannCHEM DEBGP0151-51-75 17:50:0020[facility]annCHEM YOGZL2804-34-62 17:50:0062[facility]annCHEM GJRYP5634-66-90 17:50:001.0[facility]annCHEM KWVPQ7656-11-49 17:50:00 Test Item Value Reference Range Interpretation Comments B/C Ratio (test code = B/C Ratio) 16 1 6-25 [facility]annCHEM DLAEP9751-95-97 17:50:003.6[facility] HermannCHEM PANEL 2019-07-17 17:50:00 Test Item Value Reference Range Interpretation Comments A/G Ratio (test code = A/G Ratio) 0.9 1 0.7-1.6 [facility] IbyybuvTZBVOKLPUK5198-59-98 17:50:006.1[facility] HermannHEMATOLOGY 2019-07-17 17:50:004.30[facility] LilgbnnYBRQNITHYW7450-42-76 17:50:0013.7[facility] PbuspstXJOOVQFVSX4121-50-84 17:50:0038.8[facility] QoorjgvWUVAYZZBTP2916-12-27 17:50:0090.4[facility] MynpayySEEAEQUPSH0974-50-84 17:50:00 Test Item Value Reference Range Interpretation Comments MCH (test code = MCH) 31.8 pg 27.0-31.0 [facility] HqgrcswECZUULZOPP7207-88-03 17:50:0035.2[facility] HermannHEMATOLOGY 2019-07-17 17:50:0013.7[facility] FfvokkkDPHRKTEXEU6184-68-01 17:50:79565Mumdqswu OydcqitYIDMZYESEF0459-99-80 17:50:008.7[facility] BawnuyiMWEBHPWNAO5322-24-96 17:50:001.71[facility] NidqlawJNHMYLTBZE8671-01-63 17:50:0065.1[facility] LFSMIEDBND0683-57-45 17:50:0024.1[facility] YyneayvCEAXPLSVNQ5119-94-99 17:50:00 8.1[facility] JuuymfaKWDILKIPYR0220-88-24 17:50:001.9[facility] HermannHEMATOLOGY 2019-07-17 17:50:000.8[facility] McgfwftBRUQSDRGMI1779-92-76 17:50:004.0[facility] NamxwiuOBAXSDHGKY6759-12-42 17:50:001.5[facility] UajgipcZPVPJNEEWD1122-80-02 17:50:000.5[facility] WywxcumYRLNAFXWZM3149-62-62 17:50:000.1[facility] BZGSGTVPCW4799-24-90 17:50:000.1[facility] HnzojoiLBORBZAUVF2397-63-54 15:01:00 57.9[facility] JxcmbkiPASAFSEDIE7415-06-56 15:01:0034.7[facility] HermannHEMATOLOGY 2019-07-08 15:01:006.1[facility] PtnttreEEOTSCHFBG4071-88-28 15:01:000.9[facility] QosltlsSYWITYQJUY3271-10-96 15:01:000.4[facility] DnkzmlaQGNCVMUOPD6005-82-42 15:01:003.3[facility] WoevgmbJRESGLOMNJ7690-24-43 15:01:002.0[facility] LDFCRTUTXQ7450-80-52 15:01:000.3[facility] OilgmzdMFHGJSHJHG0563-70-72 15:01:000.1 [facility] BochjkeRHWZYEQVQK8188-92-83 15:01:005.6[facility] HermannHEMATOLOGY 2019-07-08 15:01:004.67[facility] QikfzhyNXWEYXNDGL8522-99-90 15:01:0014.5[facility] JpqeqzpJXITZKXOIT1113-37-81 15:01:0042.2[facility] UhwokyuRSKYBEREUC6277-44-03 15:01:0090.2[facility] JlpmrqgBTCILSMQIK5572-43-93 15:01:00 Test Item Value Reference Range Interpretation Comments MCH (test code = MCH) 31.1 pg 27.0-31.0 [facility] IynddpmIGVQFNQKVH5122-32-73 15:01:0034.5[facility] HermannHEMATOLOGY 2019-07-08 15:01:0014.0[facility] KxgeoilBIWRQUQSJB7121-89-87 15:01:21807Ccxlnnkz ZpoqrawKLYRIBDVZD5360-86-10 15:01:009.3[facility] CffngscDVVXZQSPHX5632-86-79 15:01:00Not Detected (07/08/19 10:01 AM)[facility] HermannSPECIAL CHEMISTRY 2019-07-08 15:01:005.9[facility] QboqjvlIFLVWELPXH9681-05-88 14:16:00Not Detected (06/24/19 9:16 AM)[facility] HermannCHEM RBEMI6424-66-84 05:00:0083[facility] CHEM GMNYJ6821-60-40 05:00:0015[facility] HermannCHEM RMJUS1250-45-46 05:00:001.04 [facility] HermannCHEM TLZYV9254-72-35 05:00:0070[facility] HermannCHEM PANEL 2019-06-23 05:00:0082[facility] HermannCHEM IKGYT4001-81-82 05:00:88992Zlmheuva HermannCHEM OVUTP4054-17-03 05:00:003.9[facility] HermannCHEM KIRQU1260-80-51 05:00:49192Zheqrnii HermannCHEM VSPPV0346-12-13 05:00:0030[facility] HermannCHEM ZZODW2866-29-24 05:00:009.4[facility] HermannInitial Promis 29 Fzazga5537-52-56 20:15:01 Test Item Value Reference Range Interpretation Comments Pain Interference: (test code = Pain 71.8 1 N Interference:) Pain Intensity: (test code = Pain 58.6 1 N Intensity:) Physical Function: (test code = 37.5 1 N Physical Function:) Satisfaction Role: (test code = 40.2 1 N Satisfaction Role:) [facility]iciansX[facility] Rib[facility] unilateral [id number] 11:37:00 PROCEDURE INFORMATION:Exam: XR Right RibsExam date and time: 05/06/2019 11:36 AMAge: 74 years oldClinical indication: Pleurodynia; Additional info: /r07.81 pleurodyniaTECHNIQUE:Imaging protocol: XR Right ribs.Views: 2 views.COMPARISON:CHEST 1VIEW DX 09/22/2017 10:35 AMFINDINGS:Bones/joints: No definite displaced rib fracture. The costovertebral junctionsare unremarkable. Degenerative changes of the thoracic spine. Mediansternotomy wires.Lungs: No significant opacities. No parenchymal mass.Pleural space: No pneumothorax or effusion.Soft tissues: Normal.Notes: If there is further concern can consider a dditional views or bone scan.IMPRESSION:No acute radiographic abnormality.Fred Varner MD On 05/06/2019 11:46:47; VR-GHR__[id number]--Read by: Fred Varner MDDictated Date/time: 05/06/19 11:46Electronically Signed by: Fred Varner MD 05/05/2010:46[facility] [id number] 10:37:00PROCEDURE INFORMATION:Exam: MR Right Upper Extremity Joint Without Contrast; ShoulderExam date and time: 05/06/2019 10:39 AMAge: 74 years oldClinical indication: Other specific arthropathies, not elsewhere classified,right shoulder; Additional info: M12.811 other specific arthropathies, notelsewhere classified, right shoulder/m12.811 other specific arthropathies, notelsewhere classified, right shoulder.TECHNIQUE:Imaging protocol: MR of the Right upper extremity without contrast. Examfocused on the shoulder.COMPARISON:SHOULDER SERIES DX, RIGHT 03/14/2019 11:04 AMFINDINGS:TENDONS:Supraspinatus tendon: There is complete tear at the critical zone of thesupraspinatus tendon with tendon retraction up to 1.8 cm.Infraspinatus tendon: Tendinosis of the infraspinatus tendon without discretetear. Ganglion cystis present within the mid to posterior aspect of the tendonmeasuring 0.5 x 0.3 x 2.0 cm.Subscapularis tendon: There is high-grade full-thickness tear of the majorityof the distal subscapularis tendon with some inferior fibers remaining intact.The tendon is retracted up to 1.6 cm.Teres minor tendon: Unremarkable. No evidence of tear.Biceps brachii, long head tendon: The long biceps tendon is medially dislocatedat the bicipital groove secondary to subscapularis tendon tear described above.Underlying tendinosis present in the biceps tendon without definite tear.LIGAMENTS:Glenohumeral ligaments: Unremarkable.Glenoid labrum: There is diffuse tear of the labrum.Cartilage: Patchy partial-thickness cartilage loss along lateral humeral head.Cartilage surface fraying along the glenoid.Bones/joints: Mild subcortical cystic changes at the greater tuberosity of thehumerus. No acute fracture. Moderate degenerative changes in theacromioclavicular joint. Type 1 acromion is noted.Joint fluid: Moderate glenohumeral joint effusion is present with evidence ofsynovitis.Bursae: Small fluid distension of subacromial/subdeltoid bursa.Muscles: Muscle signal is within normal limits. No significant muscle edema oratrophy.Soft tissues: Unremarkable.IMPRESSION:1. Complete tear at the critical zone of the supraspinatus tendon with tendonretraction.2. High-grade full-thickness tear involving the majority of the subscapularistendon with secondary medial dislocation of biceps tendon from bicipitalgroove.3. Diffuse labrum tear.4. 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 Moderate glenohumeral joint effusion with synovitis.Gonzalez Colin MD On 05/06/2019 11:50:08; [id number]--Avje by: Gonzalez Colin MDDictated Date/time: 05/06/19 11:50Electronically Signed by: Gonzalez Colin MD 05/05/2010:50FINAL REPORT [facility][U] XRAY SHOULDER MIN 2 VWS RIGHT [id number] 10:08:00Images acquired, not reported on this accession number.[facility][U] XRAY SPINE CERVICAL 2 OR 3 VWS [id number] 10:08:00 Images acquired, not reported on this accession number.[facility] SodrkokubkDDGTXFVZZRAC2231-61-22 15:56:48762Kgqhnvnd HermannELECTROLYTES 2018-11-09 15:56:003.5[facility] MhxzrvlMRNMSKQKTVNE7898-45-21 15:56:96348Azumfvmt ClraecbXRRCWZNZFFGO7404-02-36 15:56:0030[facility] IahioplSNLFOJWVEXWS8853-58-44 15:56:007.5[facility][U] XRAY KNEE 3 VWS LEFT [id number] 10:04:00 Images acquired, not reported on this accession number.[facility][U] XRAY KNEE 3 VWS LEFT [id number] 09:53:00Images acquired, not reported on this accession number.[facility][U] XRAY KNEE 3 VWS LEFT [id number] 10:16:00Images acquired, not reported on this accession number.[facility][U] XRAY KNEE 3 VWS LEFT [id number] 10:46:00Images acquired, not reported on this accession number.[facility] JrbwoeggevMHJVTHOQNQNW3109-95-35 09:35:0013.0[facility] HermannELECTROLYTES 2017-09-23 09:35:0074[facility] ErytfeuFHRQYRMJLRXR9504-82-52 09:35:008.3[facility] XkxxbhbOCBFFMTFFONY3792-71-09 09:35:0028[facility] DjfbomtGYRLWEESROQH9220-60-19 09:35:44585Wxfifzsc CgfqwgnFWXNWZBLCWSI2127-61-49 09:35:0014[facility] XYEERGTYQHGX7732-85-32 09:35:004.0[facility] VhuerwhSZVIKUKAFSEO8562-33-02 09:35:09631Emevnbfu VmdnhzhJTWTTJYQNCZQ4310-82-52 09:35:94963Rjbuhuer [place] BLYRMNMEUOEE7116-09-60 09:35:001.01[facility] RkhbmimLLZKKUJYPP1088-42-87 09:35:00 2.0[facility] ShysgwxIAOLBINRTA4229-19-67 09:35:000.1[facility] HermannHEMATOLOGY 2017-09-23 09:35:000.6[facility] PhlsxnnNBETEFTAAC3601-08-39 09:35:000.5[facility] SuaiubmJCWTRPLCQH8586-18-79 09:35:002.2[facility] IpbovmiNRBBJOLOJH4943-11-08 09:35:003.6[facility] AfgzphsFOZKDSJEOT3857-46-27 09:35:0056.3[facility] IHKMCOVFEJ3620-20-82 09:35:0032.2[facility] SgwcbfdWFLXCXBENK3133-82-72 09:35:00 8.8[facility] PlohgqgTRVLJJDHDN8005-11-48 09:35:19127Eeluhnxx HermannHEMATOLOGY 2017-09-23 09:35:008.7[facility] JtfjwikBTHKBEGYTD4204-58-28 09:35:0093.3[facility] OipyewrRBWZZNZLVX6532-86-09 09:35:0039.6[facility] GjgstjfMVEWRJPIOM2423-51-52 09:35:0034.4[facility] RunpnrvCEUOOYDHXZ7433-16-14 09:35:00 Test Item Value Reference Range Interpretation Comments MCH (test code = MCH) 32.1 pg 27.0-31.0 [facility] EhadonsGTKFJAETNK0604-09-11 09:35:0014.0[facility] HermannHEMATOLOGY 2017-09-23 09:35:006.4[facility] FhthoaoCYVYKZRUZN0306-78-75 09:35:0013.6[facility] WhukhduOALRRUXIQZ1155-65-59 09:35:004.24[facility] HermannCARDIAC ENZYMES 2017-09-23 01:05:00<0.02[facility] HermannCARDIAC PVGXBNA0324-80-79 21:15:00 <0.02[facility] HermannCARDIAC PHTPOAP2653-69-86 15:54:31389Pfbtzzaz [facility] CARDIAC UDCJXSS5985-41-84 15:54:00<0.02[facility] HermannCARDIAC ENZYMES 2017-09-22 15:54:27228Chysvuna HermannCHEM YXTVR0310-30-65 15:54:0078[facility] HermannCHEM WNFMH3598-73-64 15:54:43254Vleeiihq HermannCHEM EVLUC4466-99-13 15:54:004.3[facility] HermannCHEM ZMHHO9614-49-62 15:54:0011[facility] HermannCHEM AGQUE0561-07-19 15:54:000.96[facility] HermannCHEM ZOYUQ9202-49-31 15:54:001.9 [facility] HermannCHEM PPSTG7020-85-92 15:54:006.8[facility] HermannCHEM PANEL 2017-09-22 15:54:0064[facility] HermannCHEM DQHRT1202-71-95 15:54:0045[facility] HermannCHEM ZZOLE9279-40-04 15:54:003.5[facility] HermannCHEM OBMOL7640-52-61 15:54:0052[facility] HermannCHEM JUMUY9674-57-64 15:54:008.6[facility] HermannCHEM QRAMH2721-66-15 15:54:49213Elysgptp HermannCHEM QODQK3336-55-17 15:54:0028 [facility] HermannCHEM DWULR3009-73-81 15:54:50621Zhokjtsg HermannCHEM PANEL 2017-09-22 15:54:003.3[facility] HermannCHEM FKXBY4260-65-96 15:54:00 Test Item Value Reference Range Interpretation Comments B/C Ratio (test code = B/C Ratio) 11 1 6-25 [facility] HermannCHEM DYTLJ3290-31-44 15:54:0011.3[facility] HermannCHEM PANEL 2017-09-22 15:54:00 Test Item Value Reference Range Interpretation Comments A/G Ratio (test code = A/G Ratio) 1.1 1 0.7-1.6 [facility] HermannCHEM ZPUVV7711-11-93 15:54:0098[facility] HermannCHEM PANEL 2017-09-22 15:54:002.5[facility] HermannCHEM DCZET1646-98-83 15:54:001.0[facility] RcsravaEMDWRPEOYD7167-94-58 15:54:00 Test Item Value Reference Range Interpretation Comments MCH (test code = MCH) 32.7 pg 27.0-31.0 [facility] MjqlwajSSBMBEUORH7504-91-57 15:54:0091.0[facility] HermannHEMATOLOGY 2017-09-22 15:54:0039.3[facility] NmtwedxOVNWSYOOZG9559-74-80 15:54:0014.1[facility] KjnhuacIBVVFCUKJG6093-50-80 15:54:38979Gjeqymdi XfgjiinWWQIMIFNVJ7532-86-97 15:54:008.7[facility] DqaytbxKGJEKRETII7175-19-67 15:54:004.32[facility] QZCXZJKQVZ7908-15-67 15:54:006.9[facility] WuptlasMFEQNAZDIT7226-64-72 15:54:00 14.1[facility] LaaxfjjWQGSOWKYZY2597-52-80 15:54:0035.9[facility] HermannHEMATOLOGY 2017-09-22 15:54:00 Test Item Value Reference Range Interpretation Comments PTT (test code = PTT) 26.8 s 22.9-35.8 [facility] XwwrklnFQTNDKJJOU5064-34-20 15:54:00 Test Item Value Reference Range Interpretation Comments PT (test code = PT) 13.0 s 12.0-14.7 [facility] ZkouijwJBHJPYDLEE9168-00-41 15:54:00 Test Item Value Reference Range Interpretation Comments INR (test code = INR) 0.98 1 0.85-1.17 [facility] HlqxkpkAVQGTDZWRN8946-59-29 15:54:001+ *ABN*(09/22/17 10:54 AM)[facility] MjskloqTYBLAPQSID8396-76-49 15:54:00Normal (09/22/17 10:54 AM)[facility] WHTVJEZLAT4678-40-65 15:54:00Normal (09/22/17 10:54 AM)[facility] HermannHEMATOLOGY 2017-09-22 15:54:000.2[facility] AqxunlcRNYGOASZBD3102-54-83 15:54:000.1[facility] XyzuqvoJWOFZMMUJS7373-01-24 15:54:004.2[facility] FojtkstYSUAHVACGG8886-96-36 15:54:000.8[facility] JnqksmzRDEWIZLSYL6947-28-73 15:54:0060.9[facility] YIHRGKIVNS8857-82-81 15:54:000.7[facility] JgmhdxuQWDTTSKOBP7793-07-80 15:54:002.3 [facility] BlpjfnoHOJRJPFQGY6462-42-65 15:54:0025.5[facility] HermannHEMATOLOGY 2017-09-22 15:54:0010.5[facility] IrbcjutBGKSUIKORC2756-97-16 15:54:001.8[facility] HermannURINE AND ETAEU9074-02-83 15:00:00Negative (09/22/17 10:00 AM)[facility]annUR[facility] AND TJOYD0053-31-59 15:00:00Negative *NA*(09/22/17 10:00 AM)[facility] AND YYPUT4604-72-73 15:00:00Negative (09/22/17 10:00 AM)[facility]ann[facility] AND SVLZN7714-59-99 15:00:00Negative (09/22/17 10:00 AM)[facility]annUR[facility] AND OKQBC3994-35-97 15:00:001[facility]annURINE AND STOOL 2017-09-22 15:00:00<1[facility]annUR[facility] AND ZLANU1633-49-34 15:00:00 Test Item Value Reference Range Interpretation Comments UA pH (test code = UA pH) 7.0 1 5.0-8.0 [facility]annUR[facility] AND CSUGX9427-18-52 15:00:00 Test Item Value Reference Range Interpretation Comments UA Spec Grav (test code = UA Spec 1.006 1 Grav) [facility] AND OBRSW4875-67-86 15:00:00Clear (09/22/17 10:00 AM) [facility] JLKZL6213-79-17 15:00:00Yellow *NA*(09/22/17 10:00 AM) [facility] AeajzefZEYROXDEIH0131-44-04 10:46:0013.8[facility] HermannHEMATOLOGY 2017-09-16 10:46:0040.2[facility] HermannBLOOD BANK SGGDBQB0841-03-92 11:10:00 Negative (09/15/17 6:10 AM)[facility]BL[facility] B[facility] NQISNHX5549-90-67 17:01:00 Negative (08/31/17 12:01 PM)[facility] HTVON0382-56-46 17:01:00 <1[facility]annUR[facility] AND MJQXP1949-01-59 17:01:002.0[facility] [id number] 17:01:00Negative (08/31/17 12:01 PM)[facility] [id number] 17:01:00Negative *NA*(08/31/17 12:01 PM)[facility] [id number] 17:01:00 Test Item Value Reference Range Interpretation Comments UA pH (test code = UA pH) 7.0 1 5.0-8.0 [facility] [id number] 17:01:00Negative (08/31/17 12:01 PM) [facility] [id number] 17:01:00Negative (08/31/17 12:01 PM) [facility] [id number] 17:01:00<1[facility] [id number] 17:01:00 Test Item Value Reference Range Interpretation Comments UA Spec Grav (test code = UA Spec 1.008 1 Grav) [facility] [id number] 17:01:00Clear (08/31/17 12:01 PM) [facility] [id number] 16:50:00Product available (08/31/17 11:50 AM)[facility] KN[facility] 3 VWS LEFT [id number] 08:41:00Images acquired, not reported on this accession number.[facility] [U] XRAY ELBOW MIN 3 VWS RIGHT [id number] 10:53:00Images acquired, not reported on this accession number.[facility] EN[facility]YM[facility] 2015-04-11 07:30:13864[facility]CARD[facility] [id number] 07:30:00<0.02 [facility] [id number] 07:30:008.6[facility] [id number] 07:30:000.9[facility]annBACT[facility] - [id number] 03:04:00Urine *NA*(04/10/15 9:04 PM)[facility] - [id number] 03:04:00Negative (04/10/15 9:04 PM)[facility] [id number] 03:04:00Negative *NA*(04/10/15 9:04 PM)[facility] [id number] 03:04:001[facility] [id number] 03:04:00Negative (04/10/15 9:04 PM)[facility] [id number] 03:04:00Negative (04/10/15 9:04 PM) [facility] [id number] 03:04:00Negative (04/10/15 9:04 PM) [facility] [id number] 03:04:002[facility] [id number] 03:04:00Clear (04/10/15 9:04 PM)[facility] STOOL 2015-04-11 03:04:001.019[facility] [id number] 03:04:005.0 [facility] [id number] 03:04:00Yellow *NA*(04/10/15 9:04 PM) [facility] [id number] 01:34:000.7[facility] [id number] 01:34:007.9[facility] [id number] 01:34:00 1133[facility] [id number] 01:34:00<0.02[facility] CARD[facility]AC [id number] 01:34:0051[facility]annCHEM [id number] 01:34:001.5[facility]annCHE[facility] [id number] 01:34:0068[facility]annCHE[facility] [id number] 01:34:52743Gfathmyl HermannCHEM [id number] 01:34:001.10 [facility]CHE[facility] [id number] 01:34:0020[facility]annCHEM PANEL 2015-04-11 01:34:001.6[facility]annCHE[facility] [id number] 01:34:004.0[facility]annCHEM [id number] 01:34:0035[facility]annCHE[facility] [id number] 01:34:0059[facility]annCHEM [id number] 01:34:0038[facility]annCHE[facility] [id number] 01:34:004.1[facility]annCHE[facility] [id number] 01:34:64161 [facility]annCHE[facility] [id number] 01:34:0024[facility]annCHEM PANEL 2015-04-11 01:34:04778Czorvkkj HermannCHEM [id number] 01:34:008.5[facility]annCHE[facility] [id number] 01:34:007.6[facility]annCHE[facility] [id number] 01:34:003.6[facility]annCHE[facility] [id number] 01:34:001.1[facility]annCHE[facility] [id number] 01:34:0018[facility]annCHEM [id number] 01:34:0013.1 [facility]annCARD[facility] [id number] 18:48:625597Wecqtxqu HermannCARDIAC [id number] 18:48:000.04[facility]CARD[facility] [id number] 18:48:00 0.6[facility]annCARD[facility] [id number] 18:48:007.1[facility] [id number] 18:48:00 Test Item Value Reference Range Interpretation Comments PT (test code = PT) 14.1 s 12.0-14.7 [facility] TvzppbbEEWOXFWWZJ5024-01-19 18:48:001.06[facility] 2015-[facility]-10 18:48:00 Test Item Value Reference Range Interpretation Comments MCH (test code = MCH) 30.7 pg 27.0-31.0 [facility] [id number] 18:48:0033.8[facility] 2015-04-10 18:48:0090.8[facility] KvubtprXPRFLSNZXX6654-43-99 18:48:0015.5[facility] XhjwqmeTMRGPOGDYE6451-73-41 18:48:005.06[facility] WndrictHFTXIREGLQ4884-94-87 18:48:006.3[facility] PtqcbwoOHIISDVPAQ4765-03-54 18:48:0045.9[facility] QDGDZIRANL9863-75-34 18:48:0014.2[facility] TkuarwdOINBAEGKWF5005-22-44 18:48:00 129[facility] LmouycgQSVWYJPRWS4798-22-17 18:48:009.6[facility] 2015-04-10 18:48:005.3[facility] YvsvawwVHXDIMKATZ3342-59-33 18:48:000.7[facility] OnhbjulFTXNYUSRUU9466-42-23 18:48:000.3[facility] ZvxamzkUSANHIFZDE9932-60-08 18:48:000.2[facility] MxaeezxMKUYBPNJNF8302-08-55 18:48:005.5[facility] ZRNWWYOHVV3208-10-53 18:48:000.3[facility] CvdyjjeBFOXVNVTNT0093-95-76 18:48:00 83.4[facility] RzqbqgjCEAPKGMUTP3307-06-46 18:48:0010.6[facility]annVIRAL - IRHTUJVZ8160-65-02 18:48:00Negative (04/10/15 12:48 PM)[facility] - CTUPRPMS9166-93-17 18:48:00Positive 1*ABN*(04/10/15 12:48 PM)[facility] RTOHOWPYOREY8341-62-38 20:07:0010.6[facility] TtqhireWRRYRKKMXALK4235-95-88 20:07:0028[facility] VywshffNKPWVPDKIAIE2071-84-46 20:07:97929Holeutxd [facility] HWJVZZZJNVPI6973-01-04 20:07:03718Bvdaqhof CrixhxwGNQSTJFGDKTY1343-38-20 20:07:003.6[facility] IqfxalkRYZZHRBBLL1735-67-71 20:07:0045.3[facility] JSWTEOYMFR7596-55-07 20:07:0015.2[facility] MbardhiQDJTSKDNQZKC5466-11-49 16:10:00 4.1[facility] BydshzhDPBGGCQMTCSG9708-02-41 16:10:10616Bvpcqyir [place] WIYBTCJKCPEI4066-56-15 16:10:009.1[facility] UpfscimLQHCJHMDROUI5886-09-75 16:10:0029[facility] QodwdjjCYQPOWVSAONW2842-11-52 16:10:92200Ugwbvpdi [place]
[2020-08-16] MEDS ORDERED: NA CHLORIDE 0.9% 500 ML ONE ×2 (15:34→17:42)
[2020-08-16 15:49] LABS: Absolute Lymphocytes (CBC) 2.1 K/uL (0.7-4.9); Basophils % 0.4 % (0-1.3); Hematocrit 45.1 % (39.6-49.0); Lymphocytes % 28.4 % (15.3-44.8); MPV 9.3 fL (7.6-11.3); RBC Red Blood Cell Count 5.02 M/uL (4.33-5.43)
[2020-08-16 15:52] LABS: BUN Blood Urea Nitrogen 20 mg/dL (7-18); Bicarbonate 30 mmol/L (21-32); Glucose Level 120 mg/dL (74-106); NT PRO-BNP 337 pg/mL (<450); Potassium 3.9 mmol/L (3.5-5.1); Sodium Level 141 mmol/L (136-145); Troponin (Emerg Dept Use Only) < 0.02 ng/mL (0.0-0.045)
[2020-08-16 16:11] LABS: Urine Blood Negative (Negative); Urine Glucose Negative (Negative); Urine Protein 1+ (Negative); Urine Specific Gravity 1.025 (1.005-1.030); Urine pH 5.5 (5.0-7.0)
--- NOTE | 2020-08-16 16:14 | RAD REPORT ---
EXAM DESCRIPTION: RAD - Chest Single View - 08/16/2020 4:01 pm CLINICAL HISTORY: hypotension, tachypnea Chest pain. FINDINGS: Portable technique limits examination quality. The lungs are grossly clear. The heart is upper limit of normal in size with changes of a prior CABG. Small left pleural effusion.
[2020-08-16 17:15] LABS: Urine Bacteria <20 /HPF (NONE SEEN); Urine Mucus HEAVY /HPF (NONE SEEN); Urine RBC NONE SEEN /HPF (NONE SEEN)
[2020-08-16 17:16] LABS: Calcium Oxalate Crystals- Ur FEW (NONE SEEN)
--- NOTE | 2020-08-16 17:56 | EDPHYS ---
Physician Documentation [facility] Name: Neri Delaney Age: 75 yrs Sex: Male : 1945 Arrival Date: 08/16/2020 Time: 14:34 Bed 2 Private MD: ED Physician Luisito Wesley HPI: 08/16 15:23 This 75 yrs old Male presents to ER via Wheelchair with complaints of Low rn Blood Pressure. 15:23 Reports several low blood pressure readings at home, called pcp, told to come in for rn evaluation. No fever. Reports "always short of breath". Only coughs after wakes up and uses CPAP machine. No abd pain/vomiting/diarrhea. No new urinary symptoms, does have hx of enlarged prostate. Was getting reads in 70s systolic at home, on both arms. No change in medication recently. . Onset: The symptoms/episode began/occurred today. Severity of symptoms: At their worst the symptoms were moderate in the emergency department the symptoms have improved. The patient has not experienced similar symptoms in the past. The patient has not recently seen a physician. Historical: - Allergies: 14:48 Lisinopril; sv 14:48 Maxitil; sv - PMHx: 14:48 Myocardial infarction; Hypertensive disorder; sv - PSHx: 14:48 cardiac stents; Coronary artery bypass graft; knee; shoulder; sv - Immunization history:: Client reports receiving the 2nd dose of the Covid vaccine, Client reports receiving the 1st dose of the Covid vaccine. - Social history:: Smoking status: Patient denies any tobacco usage or history of. - Family history:: not pertinent. - Hospitalizations: : No recent hospitalization is reported. ROS: 15:23 Constitutional: Negative for fever, chills, and weight loss, Eyes: Negative for injury, rn pain, redness, and discharge, ENT: Negative for injury, pain, and discharge, Neck: Negative for injury, pain, and swelling, Cardiovascular: Negative for chest pain, palpitations, and edema, Respiratory: + sob Abdomen/GI: Negative for abdominal pain, nausea, vomiting, diarrhea, and constipation, Back: Negative for injury and pain, MS/Extremity: Negative for injury and deformity, Skin: Negative for injury, rash, and discoloration, Neuro: Negative for headache, numbness, tingling, and seizure. Exam: 15:23 Constitutional: This is a well developed, well nourished patient who is awake, alert, rn + moderate tachypnea. Head/Face: Normocephalic, atraumatic. Eyes: Periorbital areas with no swelling, redness, or edema. ENT: dry MM Cardiovascular: Regular rate and rhythm. No pulse deficits. Respiratory: + moderate tachypnea, no retractions Abdomen/GI: soft, non-tender, no masses Back: No spinal tenderness. No costovertebral tenderness. Full range of motion. Skin: Warm, dry, + small area of induration and tenderness right buttocks, no fluctuance. MS/ Extremity: Pulses equal, no cyanosis. Equal circumference bilateral lower ext. Neuro: Awake and alert, GCS 15, oriented to person, place, time, and situation. Cranial nerves II-XII grossly intact. Motor strength 4/5 in all extremities. Sensory grossly intact. Cerebellar exam normal. Slow gait, but able to get into bed without assistance. Ambulatory. Vital Signs: 14:47 BP 95 / 65; Pulse 72; Resp 28; Temp 97.7; Pulse Ox 100% ; Weight 108.86 kg; Height 5 sv ft. 6 in. (167.64 cm); Pain 0/10; 15:31 BP 102 / 70; Pulse 70; Resp 25; Pulse Ox 95% on R/A; ll1 16:37 BP 97 / 64; Pulse 66; Resp 20; Pulse Ox 96% on R/A; Pain 0/10; ll1 18:35 BP 117 / 74; Pulse 70; Resp 20; Pulse Ox 96% on R/A; ll1 19:01 BP 95 / 74; Pulse 66; Resp 20; Pulse Ox 96% on R/A; ll1 20:23 BP 104 / 71; Pulse 67; Resp 18; Pulse Ox 96% on R/A; ak2 14:47 Body Mass Index 38.74 (108.86 kg, 167.64 cm) sv MDM: 14:53 Patient medically screened. rn 17:53 Differential Diagnosis cellulitis, hypotension, sepsis, dehydration, over-diuresis. rn Data reviewed: vital signs, nurses notes, lab test result(s), EKG, radiologic studies, plain films, and as a result, I will admit patient. Counseling: I had a detailed discussion with the patient and/or guardian regarding: the historical points, exam findings, and any diagnostic results supporting the discharge/admit diagnosis, lab results, radiology results, the need for further work-up and treatment in the hospital. Response to treatment: the patient's symptoms have mildly improved after treatment, and as a result, I will admit patient. Admission orders: after a detailed discussion of the patient's condition and case, the admit orders are written by me. ED course: Pt with unclear etiology of hypotension, has mild cellulitis right buttocks without fluctuance, doesn't seem bad enough to explain hypotension, will observe in hospital to hospital service and cover with abx, BP improved with fluids.. 08/16 15:07 Order name: Urine Culture rn 08/16 15:07 Order name: Urine Microscopic Only; Complete Time: 17:30 08/16 15:07 Order name: Blood Culture Adult (2) rn 08/16 15:07 Order name: Flu; Complete Time: 16:22 08/16 15:40 Order name: Basic Metabolic Panel; Complete Time: 16:22 EDIL 08/16 15:40 Order name: Troponin (Emerg Dept Use Only); Complete Time: 16:22 EDIL 08/16 15:40 Order name: NT PRO-BNP; Complete Time: 16:22 EDIL 08/16 15:07 Order name: IV Start; Complete Time: 15:09 rn 08/16 15:07 Order name: Urine Dipstick-Ancillary (obtain specimen); Complete Time: 16:38 08/16 15:07 Order name: XRAY Chest (1 view); Complete Time: 16:22 rn 08/16 15:07 Order name: EKG; Complete Time: 15:41 rn 08/16 15:07 Order name: EKG - Nurse/Tech; Complete Time: 15:09 rn 08/16 15:40 Order name: Procalcitonin; Complete Time: 16:43 EDMS 08/16 15:40 Order name: Lactate; Complete Time: 16:22 EDIL 08/16 15:40 Order name: CBC with Automated Diff; Complete Time: 16:22 EDMS 08/16 16:11 Order name: Urine Dipstick-Ancillary; Complete Time: 16:22 EDMS 08/16 16:55 Order name: SARS-COV-2 RT PCR; Complete Time: 17:12 EDMS Administered Medications: 15:15 Drug: NS 0.9% 500 ml Route: IV; Rate: bolus; Site: left antecubital; ll1 16:00 Follow up: Response: No adverse reaction; IV Status: Completed infusion; IV Intake: ll1 500ml 17:22 Drug: NS 0.9% 500 ml Route: IV; Rate: bolus; Site: left antecubital; ll1 18:21 Follow up: Response: No adverse reaction; IV Status: Completed infusion; IV Intake: ll1 500ml 18:21 Drug: vancoMYCIN 1 grams Route: IVPB; Infused Over: 2 hrs; Site: left antecubital; ll1 Disposition Summary: 08/16/20 17:55 Hospitalization Ordered Hospitalization Status: Observation rn Provider: Jarod Wesley rn Location: Telemetry/MedSurg (observation) rn Condition: Stable rn Problem: new rn Symptoms: have improved rn Bed/Room Type: Standard rn Room Assignment: 211(08/16/20 19:42) Diagnosis - Cellulitis of buttock rn - Hypotension, unspecified rn Forms: - Medication Reconciliation Form rn - SBAR form rn Signatures: Dispatcher [employer] EDMS Rosa Maria Akhtar RN RN Luisito Wesley MD MD rn Garcia, Cindy, RN RN cg Lewis, Lynsay, RN RN ll1 Corrections: (The following items were deleted from the chart) 15:53 15:41 CORONAVIRUS+MR.LAB.BRZ ordered. EDMS EDMS 16:53 15:41 CBC+H.LAB.BRZ ordered. EDMS EDMS 16:54 15:41 BASIC METABOLIC PANEL+C.LAB.BRZ ordered. EDMS EDMS 16:54 15:41 PROBNP+C.LAB.BRZ ordered. EDMS EDMS 16:54 15:41 TROPONIN (EMERG DEPT USE ONLY)+C.LAB.BRZ ordered. EDMS EDMS 18:00 15:41 LACTATE+C.LAB.BRZ ordered. EDMS EDMS 18:01 15:41 PCT+C.LAB.BRZ ordered. EDMS EDMS 19:42 17:55 rn cg
--- NOTE | 2020-08-16 17:56 | ER ---
Nurse's Notes [facility] Name: Neri Delaney Age: 75 yrs Sex: Male : 1945 Arrival Date: 08/16/2020 Time: 14:34 Bed 2 Private MD: Diagnosis: Cellulitis of buttock;Hypotension, unspecified Presentation: 08/16 14:47 Chief complaint: Patient states: hypotension 86/55, normally SBP is 110s. c/o sv dizziness. Denies SOB, CP. Coronavirus screen: Client denies travel out of the [place] in the last 14 days. At this time, the client does not indicate any symptoms associated with coronavirus-19. Ebola Screen: No symptoms or risks identified at this time. Initial Sepsis Screen: Does the patient meet any 2 criteria? RR > 20 per min. No. Patient's initial sepsis screen is negative. Does the patient have a suspected source of infection? No. Patient's initial sepsis screen is negative. Risk Assessment: Do you want to hurt yourself or someone else? Patient reports no desire to harm self or others. Onset of symptoms was August 16, 2020. 14:47 Method Of Arrival: Wheelchair sv 14:47 Acuity: KIMMIE 2 sv Historical: - Allergies: 14:48 Lisinopril; sv 14:48 Maxitil; sv - PMHx: 14:48 Myocardial infarction; Hypertensive disorder; sv - PSHx: 14:48 cardiac stents; Coronary artery bypass graft; knee; shoulder; sv - Immunization history:: Client reports receiving the 2nd dose of the Covid vaccine, Client reports receiving the 1st dose of the Covid vaccine. - Social history:: Smoking status: Patient denies any tobacco usage or history of. - Family history:: not pertinent. - Hospitalizations: : No recent hospitalization is reported. Screenin:57 Abuse screen: Denies threats or abuse. Nutritional screening: No deficits noted. ll1 Tuberculosis screening: No symptoms or risk factors identified. Fall Risk IV access (20 points). Gait- Weak (10 pts.). Total Avina Fall Scale indicates Low Risk Score (25-44 pts). Fall prevention measures have been instituted. Side Rails Up X 2 Frequent Obs/Assesments occuring Family Present and informed to notify staff if they need to leave bedside As available Patient and Family Educated on Fall Prevention Program and strategies. Assessment: 14:58 General: Appears in no apparent distress. Behavior is calm, cooperative, appropriate ll1 for age. Pain: Denies pain. Neuro: Level of Consciousness is awake, alert, obeys commands, Oriented to person, place, time, situation, Appropriate for age Kennel Manager Dog Track are equal bilaterally Moves all extremities. Full function Gait is steady, Speech is normal, Facial symmetry appears normal, Reports dizziness. Cardiovascular: Heart tones S1 S2 Capillary refill < 3 seconds Clubbing of nail beds is absent JVD Patient's skin is warm and dry. Rhythm is regular Parent/caregiver reports patient has had since low BP all day. Respiratory: Reports states he always has SOB, no worse than usual. Airway is patent Trachea midline Respiratory effort is even, labored, Respiratory pattern is symmetrical, tachypnea Breath sounds are clear bilaterally. 16:00 Reassessment: No changes from previously documented assessment. Patient and/or family ll1 updated on plan of care and expected duration. Pain level reassessed. Patient is alert, oriented x 3, equal unlabored respirations, skin warm/dry/pink. 17:00 Reassessment: No changes from previously documented assessment. Patient and/or family ll1 updated on plan of care and expected duration. Pain level reassessed. 18:00 Reassessment: No changes from previously documented assessment. Patient and/or family ll1 updated on plan of care and expected duration. Pain level reassessed. Patient is alert, oriented x 3, equal unlabored respirations, skin warm/dry/pink. 19:00 Reassessment: No changes from previously documented assessment. Patient and/or family ll1 updated on plan of care and expected duration. Pain level reassessed. Patient is alert, oriented x 3, equal unlabored respirations, skin warm/dry/pink. 19:38 Reassessment: Patient and/or family updated on plan of care and expected duration. Pain ak2 level reassessed. 20:25 General: report called to rn. ak2 Vital Signs: 14:47 BP 95 / 65; Pulse 72; Resp 28; Temp 97.7; Pulse Ox 100% ; Weight 108.86 kg; Height 5 sv ft. 6 in. (167.64 cm); Pain 0/10; 15:31 BP 102 / 70; Pulse 70; Resp 25; Pulse Ox 95% on R/A; ll1 16:37 BP 97 / 64; Pulse 66; Resp 20; Pulse Ox 96% on R/A; Pain 0/10; ll1 18:35 BP 117 / 74; Pulse 70; Resp 20; Pulse Ox 96% on R/A; ll1 19:01 BP 95 / 74; Pulse 66; Resp 20; Pulse Ox 96% on R/A; ll1 20:23 BP 104 / 71; Pulse 67; Resp 18; Pulse Ox 96% on R/A; ak2 14:47 Body Mass Index 38.74 (108.86 kg, 167.64 cm) sv ED Course: 14:34 Patient arrived in ED. rg4 14:48 Triage completed. sv 14:49 Arm band placed on. sv 14:52 Luisito Wesley MD is Attending Physician. rn 14:56 Inserted saline lock: 20 gauge in left antecubital area, using aseptic technique. Blood ll1 collected. 14:57 Maria Teresa Garcia RN is Primary Nurse. ll1 14:57 Patient has correct armband on for positive identification. Bed in low position. Call ll1 light in reach. Side rails up X 1. radiation monitor on. Pulse ox on. NIBP on. 15:59 XRAY Chest (1 view) In Process Unspecified. EDMS 17:55 Jarod Wesley MD is Hospitalizing Provider. rn Administered Medications: 15:15 Drug: NS 0.9% 500 ml Route: IV; Rate: bolus; Site: left antecubital; ll1 16:00 Follow up: Response: No adverse reaction; IV Status: Completed infusion; IV Intake: ll1 500ml 17:22 Drug: NS 0.9% 500 ml Route: IV; Rate: bolus; Site: left antecubital; ll1 18:21 Follow up: Response: No adverse reaction; IV Status: Completed infusion; IV Intake: ll1 500ml 18:21 Drug: vancoMYCIN 1 grams Route: IVPB; Infused Over: 2 hrs; Site: left antecubital; ll1 Intake: 16:00 IV: 500ml; Total: 500ml. ll1 18:21 IV: 500ml; Total: 1000ml. ll1 Outcome: 17:55 Decision to Hospitalize by Provider. rn 21:05 Admitted to Tele ak2 21:05 Condition: good 21:06 Patient left the ED. ak2 Signatures: Dispatcher [employer] Rosa Maria Paulson, RN RN Luisito Varner MD MD rn Garcia, Rubi rg4 Maria Teresa Garcia RN RN ll1 Son Ness nd2 Corrections: (The following items were deleted from the chart) 19:02 19:01 BP 95 / 74; Pulse 66bpm; Pulse Ox 96% RA; Temp 20F; ll1 ll1
[2020-08-16] MEDS ORDERED: VANCOMYCIN/NS 1 gm 1 GM/250 ML BAG IVPB ONE (19:00)
--- NOTE | 2020-08-16 20:25 | P.HP ---
Certification for Inpatient Patient admitted to: Observation With expected LOS: <2 Midnights Patient will require the following post-hospital care: None Practitioner: I am a practitioner with admitting privileges, knowledge of patient current condition, hospital course, and medical plan of care. Services: Services provided to patient in accordance with Admission requirements found in Title 42 Section 412.3 of the Code of Federal Regulations Patient History Date of Service: 08/16/20 Primary Care Provider: Brielle Milton Reason for admission: Hypotension History of Present Illness: 75-year-old male with history of CHF, CAD, hypertension, hyperlipidemia, BPH presents emergency department for hypotension. Patient rep orts that he is feeling dizzy earlier in the day and measured his blood pressure, blood pressure was in the 60s over 40s. Patient presented to the emergency department for evaluation initial blood pressure in the ER was hypotensive with systolic around 70s to 150s, patient was given total of 1 L normal saline bolus blood pressure improved to around 110 systolic, labs significant for creatinine 1.66 GFR 41. BUN 20, no labs available for comparison at this time. Patient also with small abscess to the right gluteal area without any significant surrounding erythema, nonfluctuant seems indurated approximately the size of a half-dollar. Pro calcitonin negative white blood cell count the normal limits. Patient does take Lasix at home, unsure of dose. Will obtain orthostatics vital signs, at this time hypotension likely related to volume depletion. Will continue gentle hydration. Admit under observation. Allergies dexamethasone [From Maxitrol] Allergy (Unverified 08/16/20 20:07) Hives lisinopril Allergy (Unverified 08/16/20 20:07) Hives neomycin [From Maxitrol] Allergy (Unverified 08/16/20 20:07) Hives polymyxin B [From Maxitrol] Allergy (Unverified 08/16/20 20:07) Hives - Past Medical/Surgical History -: CHF-unknown EF -: CAD with previous CABG -: Hypertension -: Hyperlipidemia -: BPH -: CABG -: Knee surgery -: Shoulder surgery Psychosocial/ Personal History: Retired, lives with - Family History Mother -: Diabetes Father -: Cancer Brother -: Heart disease - Social History Smoking Status: Former smoker Alcohol use: No CD- Drugs: No Caffeine use: Yes Place of Residence: Home Review of Systems 10-point ROS is otherwise unremarkable General: Weakness Physical Examination - Physical Exam General: Alert, In no apparent distress, Oriented x3 HEENT: Atraumatic, PERRLA, Mucous membr. moist/pink Neck: Supple, 2+ carotid pulse no bruit, No LAD Respiratory: Clear to auscultation bilaterally, Normal air movement Cardiovascular: Regular rate/rhythm, Normal S1 S2 Gastrointestinal: Normal bowel sounds, No tenderness Musculoskeletal: No tenderness Integumentary: Other (Small area of the erythema/induration approximately half dollar in size on the right gluteal area) Neurological: Normal gait, Normal speech, Normal strength at 5/5 x4 extr, Normal tone, Normal affect - Studies Laboratory Data (last 24 hrs) 08/16/20 15:07: Sodium Cancelled, Potassium Cancelled, BUN Cancelled, Creatinine Cancelled, Glucose Cancelled 08/16/20 15:07: WBC Cancelled, Hgb Cancelled, Hct Cancelled, Plt Count Cancelled 08/16/20 13:10: Sodium 141, Potassium 3.9, BUN 20 H, Creatinine 1.66 H, Glucose 120 H 08/16/20 13:10: WBC 7.50, Hgb 15.5, Hct 45.1, Plt Count 200 Microbiology Data (last 24 hrs): 08/16/20 15:15 Nasopharnyx Influenza Type A Antigen Screen - Final 08/16/20 15:15 Nasopharnyx Influenza Type B Antigen Screen - Final Assessment and Plan - Plan Assessment Hypotension likely related to volume depletion secondary to diuretic use Chronic congestive heart failure-unknown EF Renal insufficiency CAD s/p CABG/stenting Small cutaneous abscess right gluteal area Hypertension, hyperlipidemia, BPH Plan Hypotension likely related to volume depletion secondary to diuretic use: Obtain orthostatics vital signs, blood pressure improved after fluid bolus, will continue gentle hydration overnight. Will need to evaluate home medications and adjust as necessary. Continue to monitor blood pressure throughout the evening, if blood pressure remains stable patient can likely be discharged tomorrow. DVT prophylaxis with Lovenox 40 mg subcutaneous once daily. Chronic congestive heart failure-unknown EF: Patient reports last echocardiogram approximately 5-6 months prior, unsure of the ejection fraction, scheduled for outpatient echocardiogram in the near future. Appears dry, will continue gentle hydration and monitor volume status closely. Continue home meds Renal insufficiency: Unsure if patient's baseline renal function, no labs available for comparison will continue with gentle hydration overnight and recheck with morning labs. CAD s/p CABG/stenting: Stable, continue home meds Small cutaneous abscess right gluteal area: Will initiate p.o. antibiotic- Bactrim at this time. No surrounding cellulitis, white blood cell count normal, pro calcitonin normal, area indurated, no fluctuance not likely to benefit from incision/drainage at this time. Hypertension, hyperlipidemia, BPH: Obtain and continue home medications, adjust as necessary. Discharge Plan: Home Plan to discharge in: 24 Hours - Advance Directives Does patient have a Living Will: No Does patient have a Durable POA for Healthcare: No - Code Status/Comfort Care Code Status Assessed: Yes (Full code) Critical Care: No Time Spent Managing Pts Care (In Minutes): 55
[2020-08-16] MEDS ORDERED: ACETAMINOPHEN 500 MG TAB PO PRN (21:19)
[2020-08-16] MEDS ORDERED: ONDANSETRON 4 MG/2 ML VIAL IV PRN (21:19)
[2020-08-16] MEDS ORDERED: NA CHLORIDE 0.9% 1,000 ML IV SCH (21:19)
[2020-08-16 21:44] VITALS: BMI 38.7
[2020-08-17 05:24] LABS: Hematocrit 41.7 % (39.6-49.0); Lymphocytes % 32.4 % (15.3-44.8); MPV 9.2 fL (7.6-11.3); RBC Red Blood Cell Count 4.68 M/uL (4.33-5.43)
[2020-08-17 05:25] LABS: Absolute Lymphocytes (CBC) 2.4 K/uL (0.7-4.9); Basophils % 0.6 % (0-1.3)
[2020-08-17 05:50] LABS: ALT/SGPT 23 U/L (12-78); AST/SGOT 13 U/L (15-37); Albumin 3.4 g/dL (3.4-5.0); Alkaline Phosphatase 59 U/L (45-117); BUN Blood Urea Nitrogen 18 mg/dL (7-18); Bicarbonate 28 mmol/L (21-32); Glucose Level 92 mg/dL (74-106); Magnesium 2.2 mg/dL (1.8-2.4); Potassium 3.8 mmol/L (3.5-5.1); Protein, Total 6.1 g/dL (6.4-8.2); Sodium Level 141 mmol/L (136-145); Troponin I < 0.02 ng/mL (0.0-0.045)
[2020-08-17 05:59] LABS: LDL Cholesterol, Calculated 122 (<130)
--- NOTE | 2020-08-17 07:45 | EKG ---
Test Date: 2020-08-16 Test Time: 14:52:33 Iron Assorter: SINDI MEASUREMENT RESULTS: Intervals: Rate: 69 CO: 198 QRSD: 76 QT: 384 QTc: 411 [place]: P: 36 CO: 198 QRS: 73 T: 266 INTERPRETIVE STATEMENTS: Normal sinus rhythm Nonspecific T wave abnormality Abnormal ECG Compared to ECG 09/11/2006 21:25:01 T-wave abnormality now present Myocardial infarct finding no longer present ST (T wave) deviation no longer present Electronically Signed On 08-17-20 07:42:41 CDT by Emerson Herrera
[2020-08-17 08:30] VITALS: BP 149/98; TEMP 96.8
[2020-08-17] MEDS ORDERED: ASPIRIN EC 81 MG TAB PO SCH (09:00)
[2020-08-17] MEDS ORDERED: FISH OIL PO SCH ×2 (09:00)
[2020-08-17] MEDS ORDERED: COENZYME Q10- 200 MG CAP PO SCH (09:00)
[2020-08-17] MEDS ORDERED: POTASSIUM CL SA 10 MEQ TAB PO ONE (09:00)
[2020-08-17] MEDS ORDERED: [UNRECOGNIZED DRUG - OTHER] PO SCH ×2 (09:00)
[2020-08-17] MEDS ORDERED: ISOSORBIDE MONO SR 30 MG TAB PO SCH ×2 (09:00)
[2020-08-17] MEDS ORDERED: CLOPIDOGREL 75 MG TABLET PO SCH (09:00)
[2020-08-17] MEDS ORDERED: LOSARTAN POTASSIUM 25 MG PO SCH (09:00)
[2020-08-17] MEDS ORDERED: PANTOPRAZOLE 40MG TABLET PO SCH (09:00)
[2020-08-17] MEDS ORDERED: EZETIMIBE 10 MG TAB PO SCH (09:00)
[2020-08-17] MEDS ORDERED: VITAMIN D 400 UNIT TAB PO SCH (09:00)
[2020-08-17] MEDS ORDERED: SMZ./TMP. 800/160 MG TABLET PO SCH (09:00)
[2020-08-17] MEDS ORDERED: FLAX PO SCH ×2 (09:00)
[2020-08-17] MEDS ORDERED: ENOXAPARIN 40 MG/0.4 ML SQ SCH (09:00)
[2020-08-17] MEDS ORDERED: BORAGE PO SCH ×2 (09:00)
[2020-08-17 11:27] VITALS: O2SAT 94
[2020-08-17] MEDS ORDERED: SIMVASTATIN 40 MG PO SCH (21:00)
[2020-08-17] MEDS ORDERED: ATORVASTATIN 20 MG TAB PO SCH (21:00)
--- NOTE | 2020-08-17 21:25 | P.DS ---
Admission Date: 08/16/20 Discharge Date: 08/17/20 Primary Care Provider: Brielle Milton Disposition: ROUTINE DISCHARGE Discharge Condition: GOOD Reason for Admission: Hypotension Procedures: CXR (08/16): The lungs are grossly clear. The heart is upper limit of normal in size with changes of a prior CABG. Small left pleural effusion. Problem List Hypotension secondary to volume depletion secondary to diuretic use and decreased PO intake Chronic congestive heart failure-unknown EF Renal insufficiency CAD s/p CABG/stenting Small Boild at R buttocks HTN HLD BPH Brief History of Present Illness: 75-year-old male with history of CHF, CAD, hypertension, hyperlipidemia, BPH presents emergency department for hypotension. [place] dizzy earlier in the day so measured his BP: 60s/40s. PResented to ED due to low BP findings. Given 1L NS bolus with improvement of SBP in 60-70s to 110s. Labs notable for mild KATHLEEN. Exam notable for small boil to R buttocks. Pro calcitonin negative white blood cell count the normal limits. Patient does take Lasix at home, unsure of dose. Hypotension likely related to volume depletion. Will continue gentle hydration. Hospital Course: Improved overnight with IV fluid and holding home BP medications. He was feeling well and like his usual self the following morning. He was discharged home. Recommended reducing lasix dose in half. Monitor daily weights to decide when a 2nd lasix dose is needed. Recommended slowly adding back his anti-hypertensives over the next few days as BP increases. Boil of R buttock - no significant fluctuance, starting to come to head. advised continuation of warm compresses Follow up with PCP in 3-5 days. Vital Signs/Physical Exam: Temp Pulse Resp BP Pulse Ox 96.8 F 74 19 149/98 H 94 08/17/20 08:00 08/17/20 08:00 08/17/20 08:00 08/17/20 08:00 08/17/20 08:00 General: Alert, In no apparent distress, Oriented x3 HEENT: Mucous membr. moist/pink, Sclerae nonicteric Respiratory: Clear to auscultation bilaterally, Normal air movement Cardiovascular: No edema, Regular rate/rhythm, Normal S1 S2 Gastrointestinal: Soft and benign, Non-distended, No tenderness Musculoskeletal: No swelling, No tenderness Integumentary: Other (Boil ~2cm diameter with slight extended erythema an additional ~1 cm, mild tenderness) Neurological: Normal speech, Normal strength at 5/5 x4 extr, Normal affect Laboratory Data at Discharge: WBC 7.30 K/uL (4.3-10.9) 08/17/20 04:57 Hgb 14.6 g/dL (13.6-17.9) 08/17/20 04:57 Hct 41.7 % (39.6-49.0) 08/17/20 04:57 Plt Count 161 K/uL (152-406) 08/17/20 04:57 Sodium 141 mmol/L (136-145) 08/17/20 04:57 Potassium 3.8 mmol/L (3.5-5.1) 08/17/20 04:57 BUN 18 mg/dL (7-18) 08/17/20 04:57 Creatinine 1.10 mg/dL (0.55-1.3) 08/17/20 04:57 Glucose 92 mg/dL (74-106) 08/17/20 04:57 Magnesium 2.2 mg/dL (1.8-2.4) 08/17/20 04:57 Total Bilirubin 1.0 mg/dL (0.2-1.0) 08/17/20 04:57 AST 13 U/L (15-37) L 08/17/20 04:57 ALT 23 U/L (12-78) 08/17/20 04:57 Alkaline Phosphatase 59 U/L (45-117) 08/17/20 04:57 Troponin I < 0.02 ng/mL (0.0-0.045) 08/17/20 04:57 Triglycerides 90 mg/dL (<150) 08/17/20 04:57 Cholesterol 143 mg/dL (<200) 08/17/20 04:57 HDL Cholesterol mg/dL (40-60) 08/17/20 04:57 Cholesterol/HDL Ratio 47.60 08/17/20 04:57 Home Medications: Aspirin [Aspirin EC 81 MG] 81 mg PO BID 08/16/20 Cholecalciferol (Vitamin D3) [Vitamin D3] 400 unit PO DAILY 08/16/20 Clopidogrel Bisulfate [Plavix*] 75 mg PO DAILY 08/16/20 Ezetimibe [Zetia*] 10 mg PO DAILY 08/16/20 Fish Oil/Borage/Flax/Om3,6,9 1 [Central 3-6-9 1,200 mg Softgel] 1,600 mg PO BID 08/16/20 Isosorbide Mononitrate [Isosorbide Mononitrate ER] 45 mg PO DAILY 08/16/20 Losartan Potassium 12.5 mg PO BID 08/16/20 Pantoprazole [Protonix Tab*] 40 mg PO BID 08/16/20 Potassium Chloride [Klor-Con M20] 20 meq PO DAILY 08/16/20 Ranolazine [Ranolazine ER] 500 mg PO BID 08/16/20 Simvastatin 40 mg PO BEDTIME 08/16/20 Ubidecarenone [Co Q-10] 200 mg PO DAILY 08/16/20 Furosemide [Lasix*] 40 mg PO DAILY 30 Days #30 tab 08/17/20 New Medications: Furosemide [Lasix*] 40 mg PO DAILY 30 Days #30 tab Physician Discharge Instructions: PROBLEM: Hypotension GOAL: Clear understanding of disease process INSTRUCTIONS: Diet: heart healthy Activity: As tolerated If you have any questions regarding your stay call [phone] If your symptoms worsen call 911 or go to the ED. You were found to be hypotensive, secondary to dehydration / low volume. improved/resolved with IV hydration and holding your blood pressure medication. Recommend decreasing lasix dose in half - to one 40mg pill daily. Minimize salt intake. Hold off on taking your lisinopril in the next few days, unless your blood pressure is >140/90 follow up with PCP in 3-5 days. follow up with your Onboarding Specialist as schedule. Diet: AHA Activity: Ad arvin Followup: OOTOOT [Primary Care Provider] - Time spent managing pt's care (in minutes): 40
== END 2020-08-17 10:59 | disposition home or self-care (01) ==
LOC: ER 14:31 → ERHOLD 19:06 → 2ND 20:39
PROVIDERS: ADMIT Hospitalist; ATTEND Hospitalist
DX: I95.2 Hypotension due to drugs (principal); E86.9 Volume depletion, unspecified; T50.2X5A Adverse effect of carbonic-anhydrase inhibitors, benzothiadiazides and other diuretics, initial encounter; I11.0 Hypertensive heart disease with heart failure; I50.9 Heart failure, unspecified; Z20.822 Contact with and (suspected) exposure to COVID-19; N28.9 Disorder of kidney and ureter, unspecified; I25.10 Atherosclerotic heart disease of native coronary artery without angina pectoris; Z95.1 Presence of aortocoronary bypass graft; Z95.5 Presence of coronary angioplasty implant and graft; L02.32 Furuncle of buttock; E78.5 Hyperlipidemia, unspecified; N40.0 Benign prostatic hyperplasia without lower urinary tract symptoms; Z87.891 Personal history of nicotine dependence
CPT/HCPCS: 96361; 93005; 87040; 87088; 85025 ×2; 87086; 80048; 36415; 83735; 87205; 80061; 83605; 84443; 84484 ×3; 84439; 80053; 84145; 83880; 87804 ×2; 71045; 96374; 99285; U0003; J1650; J3370; J7040 ×2; J7030; G0378 ×2; 81003; 81015